=== PATIENT | male | born 1955 | race Caucasian/White ===

== ENCOUNTER 2017-06-19 22:30 | Inpatient (IN) | payer OTHER, MEDICARE ==
[2017-06-19 22:30] VITALS: BP 161/86; PULSE 66; RESP 16; TEMP 98; O2SAT 96
[~2017-06-19 22:30] MED LIST: BENZ0.5T PO; DONE10TA7 PO; FOLI400T PO; GABA800T PO; HALO100I IM; HALO10TA PO; LORA2TAB7 PO; OMEP20TA PO; TRAZ100T6 PO; VIAG25TA PO
[2017-06-20 04:20] VITALS: BP 145/81; PULSE 64; RESP 16; TEMP 97.7; O2SAT 98
[2017-06-20] MEDS ORDERED: ACETAMINOPHEN 325 MG TAB PO PRN (05:15)
[2017-06-20] MEDS ORDERED: SODIUM CHLORIDE 0.9% FLUSH 10 ML FLUSH IV FLUSH PRN (05:15)
[2017-06-20] MEDS ORDERED: NALOXONE HCL 0.4 MG/ML AMP IV PUSH PRN (05:15)
[2017-06-20] MEDS ORDERED: ONDANSETRON HCL 4 MG/2 ML VIAL IVP PRN (05:15)
[2017-06-20] MEDS ORDERED: LORazepam 2 MG/ML VIAL IV PUSH PRN ×3 (05:45)
[2017-06-20] MEDS ORDERED: LORazepam 1 MG TAB PO PRN (05:45)
[2017-06-20] MEDS ORDERED: LORazepam 2 MG TAB PO PRN (05:45)
[2017-06-20] MEDS ORDERED: FLUMAZENIL 0.5 MG/5 ML VIAL IV PUSH PRN (05:45)
--- NOTE | 2017-06-20 05:53 | HHI.HP ---
[facility]Staff Admission Diagnosis Diagnoses: Travel History International Travel<30 Days: No Contact w/Intl Traveler <30 Da: No Traveled to Known Affected Are: No History of Present Illness Per ED, the patient's states that he has a history of schizophrenia and was started on Cogentin 2 weeks ago. Per the , the patient has taken one dose of Cogentin and since that time he has "not been the same." His mental status is altered and the states that he has had poor by mouth intake and is very lethargic. On our interview, the patient is agitated and repeatedly screams "leave me alone". I was unable to obtain a history from the patient and as his was not bedside and I was unable to reconcile any medications. Review of Systems Unable to obtain Past Family Social History Past Medical History Unable to obtain Past Surgical History Unable to obtain Reported Medications Unable to obtain Allergies: Coded Allergies: No Known Allergies (Verified Allergy, Unknown, 06/19/17) Family History Unable to obtain Social History Unable to obtain Physical Exam Vital Signs Vital Signs Date Time Temp Pulse Resp B/P (MAP) Pulse Ox O2 Delivery O2 Flow Rate FiO2 06/19/17 22:30 98.0 66 16 161/86 (111) 96 Physical Exam GENERAL: White male lying in bed, agitated and refusing to follow commands SKIN: No rashes, ecchymoses or lesions. Cool and dry. HEAD: Atraumatic. Normocephalic. No temporal or scalp tenderness. EYES: Extraocular motions intact. No scleral icterus. No injection or drainage. ENT: Nose without bleeding. Airway patent. NECK: Trachea midline. No JVD or lymphadenopathy. Supple, nontender, no meningeal signs. CARDIOVASCULAR: Regular rate and rhythm without murmurs, gallops, or rubs. RESPIRATORY: Clear to auscultation. Breath sounds equal bilaterally. No wheezes , rales, or rhonchi. GASTROINTESTINAL: Abdomen soft, non-tender, nondistended. No hepato-splenomegaly , or palpable masses. No guarding. MUSCULOSKELETAL: Extremities without clubbing, cyanosis, or edema. NEUROLOGICAL: Awake and alert. Cranial nerves II through XII intact. Unable to assess mental status this patient uncooperative. Caprini VTE Risk Assessment Caprini VTE Risk Assessment: No/Low Risk (score <= 1) Caprini Risk Assessment Model Point Value = 1 Point Value = 2 Point Value = 3 Point Value = 5 Age 41-60 Minor surgery BMI > 25 kg/m2 Swollen legs Varicose veins or History of unexplained or recurrent spontaneous Oral contraceptives or hormone replacement Sepsis (< 1 month) Serious lung disease, including pneumonia (< 1 month) Abnormal pulmonary function Acute myocardial infarction Congestive heart failure (< 1 month) History of inflammatory bowel disease Medical patient at bed rest Age 61-74 Arthroscopic surgery Major open surgery (> 45 min) Laparoscopic surgery (> 45 min) Malignancy Confined to bed (> 72 hours) Immobilizing plaster cast Central venous access Age >= 75 History of VTE Family history of VTE Factor V Leiden Prothrombin [id number] Lupus anticoagulant Anticardiolipin antibodies Elevated serum homocysteine Heparin-induced thrombocytopenia Other congenital or acquired thrombophilia Stroke (< 1 month) Elective arthroplasty Hip, pelvis, or leg fracture Acute spinal cord injury (< 1 month) Prophylaxis Regimen Total Risk Factor Score Risk Level Prophylaxis Regimen 0-1 Low Early ambulation 2 Moderate Order ONE of the following: *Sequential Compression Device (SCD) *Heparin 5000 units SQ BID 3-4 Higher Order ONE of the following medications: *Heparin 5000 units SQ TID *Enoxaparin/Lovenox 40 mg SQ daily (WT < 150 kg, CrCl > 30 mL/min) *Enoxaparin/Lovenox 30 mg SQ daily (WT < 150 kg, CrCl > 10-29 mL/min) *Enoxaparin/Lovenox 30 mg SQ BID (WT < 150 kg, CrCl > 30 mL/min) AND/OR *Sequential Compression Device (SCD) 5 or more Highest Order ONE of the following medications: *Heparin 5000 units SQ TID (Preferred with Epidurals) *Enoxaparin/Lovenox 40 mg SQ daily (WT < 150 kg, CrCl > 30 mL/min) *Enoxaparin/Lovenox 30 mg SQ daily (WT < 150 kg, CrCl > 10-29 mL/min) *Enoxaparin/Lovenox 30 mg SQ BID (WT < 150 kg, CrCl > 30 mL/min) AND *Sequential Compression Device (SCD) Assessment and Plan Assessment and Plan 61-year-old male with a past medical history significant for schizophrenia presented to the emergency department with altered mental status to the increased lethargy since starting Cogentin 1. Altered mental status Likely medication induced Head CT without acute process Labs obtained in the emergency department unremarkable Unable to ascertain patient's baseline Psychiatry consulted, appreciate assistance with medication 2. Schizophrenia Patient currently on Cogentin Unclear what other medications the patient takes as he was unable to answer questions Appreciate psychiatry's assistance A benefit from inpatient psychiatric admission once cleared medically FEN Heart healthy diet Electrolytes within normal limits; continue to monitor and replete when necessary Heparin Physician Certification 2 Midnight Certification Type: Admission for Inpatient Services Order for Inpatient Services The services are ordered in accordance with Medicare regulations or non- Medicare payer requirements, as applicable. In the case of services not specified as inpatient-only, they are appropriately provided as inpatient services in accordance with the 2-midnight benchmark. Estimated LOS (days): 2 2 days is the estimated time the patient will need to remain in the hospital, assuming treatment plan goals are met and no additional complications. Post-Hospital Plan: Not yet determined Geni Sahni MD Jun 20, 2017 05:53
[2017-06-20] MEDS ORDERED: HEPARIN SODIUM - SQ 10,000 UNITS/ML VIAL SQ SCH (06:00)
[2017-06-20 07:00] VITALS: BP 138/74; PULSE 72; RESP 18; TEMP 98.5; O2SAT 97
[2017-06-20 08:00] VITALS: BP 138/74; PULSE 72; RESP 18; TEMP 98.5; O2SAT 97
[2017-06-20] MEDS ORDERED: FOLIC ACID 1 MG TAB PO SCH (09:00)
[2017-06-20] MEDS ORDERED: MULTIVITAMINS/MINERALS THERAPEUTIC TAB PO SCH (09:00)
[2017-06-20] MEDS ORDERED: SODIUM CHLORIDE 0.9% FLUSH 10 ML FLUSH IV FLUSH SCH (09:00)
[2017-06-20] MEDS ORDERED: THIAMINE HCL 100 MG TAB PO SCH (09:00)
[2017-06-20 12:00] VITALS: BP 148/90; PULSE 77; RESP 18; TEMP 98.2; O2SAT 99
[2017-06-20] MEDS: LORazepam 2 MG/ML VIAL IV PUSH PRN ×2 (13:34→16:52)
--- NOTE | 2017-06-20 14:48 | HHI.PR ---
Subjective Remarks Follow-up visit schizophrenia. Patient seen and examined today. Laying in bed. Patient appears to be having some tremors. Minimal verbalization. When asked if he is doing okay, patient states "I'm not okay." He is unable to describe any feeling he was on the phone and he hadn't been to phone. Spoke with his Bushra and told her that we would call her back once the patient gets evaluated and assessed. Patient became aggressive and held his fist attempting to hit me. I told patient not to attempt or even think about hitting me. He calmed down and let me examine him briefly. Objective Vitals Vital Signs Date Time Temp Pulse Resp B/P (MAP) Pulse Ox O2 Delivery O2 Flow Rate FiO2 06/20/17 12:00 98.2 77 18 148/90 (109) 99 06/20/17 08:00 98.5 72 18 138/74 (95) 97 06/20/17 04:20 97.7 64 16 145/81 (102) 98 06/19/17 22:30 98.0 66 16 161/86 (111) 96 I/O 06/19/17 06/19/17 06/19/17 06/20/17 06/20/17 06/20/17 07:00 15:00 23:00 07:00 15:00 23:00 Intake Total 0 ml Balance 0 ml Intake Oral 0 ml # Voids 2 # Bowel Movements 0 Objective Remarks GENERAL: This is a well-nourished, well-developed patient, in no apparent distress. SKIN: Warm and dry. HEENT: Normocephalic. Pupils equal round and reactive. Nose without bleeding. Airway patent. NECK: Trachea midline. No JVD. Supple. CARDIOVASCULAR: Regular rate and rhythm without murmurs, gallops, or rubs. RESPIRATORY: No wheezes, rales, or rhonchi. GASTROINTESTINAL: Abdomen soft, non-tender, nondistended. Bowel Sounds normoactive x4. MUSCULOSKELETAL: Extremities without clubbing, cyanosis, or edema. Tremulous. NEUROLOGICAL: Awake and alert. Moves all extremities. Minimal verbalization. A/P Problem List: (1) Altered mental status ICD Code: R41.82 - Altered mental status, unspecified Status: Acute Assessment and Plan 61-year-old male with a past medical history significant for schizophrenia presented to the emergency department with altered mental status to the increased lethargy since starting Cogentin Altered mental status - Likely medication induced - Head CT without acute process - Labs obtained in the emergency department unremarkable - Unable to ascertain patient's baseline - Psychiatry consulted, appreciate assistance with medication Schizophrenia - Patient currently on Cogentin - Unclear what other medications the patient takes as he was unable to answer questions - Appreciate psychiatry's assistance - Needs to be transfer inpatient psychiatric admission Elevated ammonia level - Lactulose daily - Recheck ammonia level in a few days Patient is cleared from medical standpoint. Labs reviewed CBC unremarkable, BMP showed a GFR at 86, T bili 1.4, AST 39 otherwise unremarkable. Elevated ammonia levels at 35, troponin less than 0.02. Attempted to call Bushra at [phone] - no answer and unavailable to leave message Discharge Planning Plan to DC to inpatient psychiatry unit today. Attending Statement The exam, history, and the medical decision-making described in the above note were completed with the assistance of the mid-level provider. I reviewed and agree with the findings presented. I attest that I had a [id number] encounter with the patient on the same day, and personally performed and documented my assessment and findings in the medical record. Patient was found in bed. When I asked patient questions he did not want to talk to me. When I asked us to carefully examine him he stated no. Gen NAD NEURO: Motor grossly intact. Otherwise he did not let me examine him. Labs and imaging reviewed. The [place] is more due to a psychiatric issue. Patient mentally stable to be discharged to psychiatry. Douglas Herrera Jun 20, 2017 14:48 Kandice Thibodeaux MD Jun 20, 2017 16:04
[2017-06-20] MEDS ORDERED: GNP100TA3 PO (15:55)
[2017-06-20] MEDS ORDERED: LORA-474 PO (15:55)
[2017-06-20] MEDS ORDERED: ATIV2INJ2 IV PUSH ×4 (15:55)
[2017-06-20] MEDS ORDERED: THERM PO (15:55)
[2017-06-20] MEDS ORDERED: LORA-475 PO (15:55)
[2017-06-20] MEDS ORDERED: LACT10SO PO (16:00)
--- NOTE | 2017-06-20 16:16 | PD.PSY.CON ---
Provisional Diagnosis Admission Date Jun 19, 2017 at 22:53 [place]. Schizophrenia History of Present Illness Service Psychiatry Consult Requested By Katelyn DICK Reason for Consult Schizophrenia Primary Care Physician Non-Staff HPI Patient is a 61-year-old man, , domiciled with , with past psychiatric history of schizophrenia, prior psychiatric hospitalizations, with [facility], who was brought into the ER initially for increased lethargic after starting Cogentin 2 weeks ago and was noted to have altered mental status with decreased eating and drinking which she was admitted to the medical floor for evaluation of the same and psychiatry was consulted for evaluation of schizophrenia. Patient was found lying in hospital bed noted to have decreased slow movements along with speech latency and thought blocking. Patient states that he has been feeling "not very good" she noted to be alert and oriented only to person. When asked if his speech is usually slow he states "this is normal" very patient denies any perceptual disturbances at this time. Patient noted to b becoming increasingly irritable stating "get the f*ck away from me" and refused to continue interview and turnaround slowly to face the other side. Patient throughout interview was noted to have rigidity, staring, inhibited movement, immobility at times (no spontaneous movement), which patient may be exhibiting signs of catatonia. Past Family Social History Coded Allergies: No Known Allergies (Verified Allergy, Unknown, 06/19/17) Reported Medications Haloperidol Decanoate Inj (Haloperidol Decanoate Inj) 100 Mg/Ml Inj, 100 MG IM Q21D for Schizophrenia, #1 VIAL 0 Refills 06/19/17 Haloperidol (Haloperidol) 10 Mg Tab, 10 MG PO DAILY, TAB 0 Refills 06/19/17 Trazodone (Trazodone) 100 Mg Tablet, 100 MG PO HS for Control Depression, #30 TAB 0 Refills 06/19/17 Sildenafil (Viagra) 25 Mg Tab, 25 MG PO DAILY Y for ERECTILE DYSFUNCTION, TAB 0 Refills 06/19/17 Omeprazole (Omeprazole) 20 Mg Tab, 20 MG PO DAILY, #30 TAB 0 Refills 06/19/17 Lorazepam (Lorazepam) 2 Mg Tab, 2 MG PO Q8H Y for ANXIETY, TAB 0 Refills 06/19/17 Gabapentin (Gabapentin) 800 Mg Tab, 800 MG PO HS, #90 TAB 0 Refills 06/19/17 Folic Acid (Folic Acid) 0.4 Mg Tab, 1 MG PO DAILY for Nutritional Supplement, TAB 0 Refills 06/19/17 Donepezil (Donepezil) 10 Mg Tab, 10 MG PO HS for Dementia, #30 TAB 0 Refills 06/19/17 Benztropine (Benztropine) 0.5 Mg Tab, 2 MG PO QID, #60 TAB 0 Refills 06/19/17 Current Medications Medications (Trade) Dose Ordered Sig/Ricardo Route Start Time Stop Time Status Last Admin (NS Flush) 2 ml UNSCH PRN IV FLUSH 06/20/17 05:15 (NS Flush) 2 ml BID IV FLUSH 06/20/17 09:00 (Tylenol) 650 mg Q4H PRN PO 06/20/17 05:15 (Zofran Inj) 4 mg Q6H PRN IVP 06/20/17 05:15 (Heparin Inj) 5,000 units Q8H SQ 06/20/17 06:00 (Narcan Inj) 0.4 mg UNSCH PRN IV PUSH 06/20/17 05:15 (Folate) 1 mg DAILY PO 06/20/17 09:00 06/25/17 08:59 (Vitamin B1) 100 mg DAILY PO 06/20/17 09:00 (Theragran M Tab) 1 tab DAILY PO 06/20/17 09:00 06/25/17 08:59 (Romazicon Inj) 0.2 mg Q1M PRN IV PUSH 06/20/17 05:45 (Ativan) 1 mg Q4H PRN PO 06/20/17 05:45 (Ativan Inj) 1 mg Q4H PRN IV PUSH 06/20/17 05:45 (Ativan) 2 mg Q2H PRN PO 06/20/17 05:45 (Ativan Inj) 2 mg Q2H PRN IV PUSH 06/20/17 05:45 06/20/17 13:34 (Ativan Inj) 2 mg Q1H PRN IV PUSH 06/20/17 05:45 (Ativan Inj) 2 mg Q15M PRN IV PUSH 06/20/17 05:45 Physical Exam Vital Signs Vital Signs Date Time Temp Pulse Resp B/P (MAP) Pulse Ox O2 Delivery O2 Flow Rate FiO2 06/20/17 12:00 98.2 77 18 148/90 (109) 99 I/O 06/20/17 06/20/17 06/21/17 08:00 16:00 00:00 Intake Total 0 ml Balance 0 ml Mental Status Examination Appearance: Appropriate Consciousness: Alert Orientation: Person Speech: Hesitant, Slow Language: Other (poverty of speech) Fund of Knowledge: Inadequate Attention and Concentration: Inadequate Mood: Irritable Affect: Irritable Thought Process & Associations: Other (concrete) Thought Content: Thought blocking Hallucination Type: None Delusion Type: None Suicidal Ideation: No Suicidal Plan: No Suicidal Intention: No Homicidal Ideation: No Homicidal Plan: No Homicidal Intention: No Insight: Poor Judgment: Poor Assessment & Plan Problem List: (1) Schizophrenia ICD Codes: F20.9 - Schizophrenia, unspecified Assessment & Plan Patient is a 61-year-old man who carries a diagnosis of schizophrenia who was recently admitted to the medical unit for also mentions status and decrease in eating and drinking after having been started on Cogentin 2 weeks ago. Patient upon interview was guarded and uncooperative but also noted to have catatonic-like features and or psychosis. Would recommend trial of benzodiazepine to see if patient responds, Ativan 1 mg by mouth every 6 hours. Patient at this time will be put under [place] act for transfer to the inpatient psychiatry unit once medically cleared due to concerns that patient is unable to care for self under this current clinical presentation. If patient medically clear please transfer patient to medical/psychiatry unit for further evaluation and management. If patient continues to remain a medical floor, psychiatry consultation team will continue to follow. Consult appreciated. Mj Echevarria MD Jun 20, 2017 16:16
== END 2017-06-20 17:08 | DRG 948 ==
LOC: NEDDLT 22:30 → N05B 22:53
PROVIDERS: ADMIT Family Medicine; ATTEND Family Medicine
DX: R41.82 Altered mental status, unspecified (principal); F20.9 Schizophrenia, unspecified; T50.905A Adverse effect of unspecified drugs, medicaments and biological substances, initial encounter
CPT/HCPCS: 70450; 71010; 80053; 80307; 81001; 82140; 82948; 84484; 85025; 93005; J2060

== ENCOUNTER 2017-06-20 17:15 | Inpatient (IN) | payer OTHER, MEDICARE ==
[~2017-06-20] VITALS: Ht 188 cm; Wt 97.8 kg
[~2017-06-20 17:15] MED LIST changes: +ATIV2INJ2 IV PUSH; +LACT10SO PO; +LORA-474 PO; +LORA-475 PO; -OMEP20TA PO; +OMEP20TA93 PO; +THERM PO; +THIA100 PO; +TRAZ100T10 PO; -TRAZ100T6 PO
[2017-06-20] MEDS ORDERED: ACETAMINOPHEN 325 MG TAB PO PRN (18:00)
[2017-06-20] MEDS: LACTULOSE SYRUP 20 GM/30 ML CUP PO SCH (18:00)
[2017-06-20] MEDS ORDERED: ALUMINUM/MAGNESIUM/SIMETH 30 ML CUP PO PRN (18:00)
[2017-06-20] MEDS ORDERED: LORazepam 1 MG TAB PO PRN (18:00)
[2017-06-20] MEDS: LORazepam 1 MG TAB PO SCH ×2 (18:00→20:46)
[2017-06-20] MEDS ORDERED: MAGNESIUM HYDROXIDE SUSP 30 ML CUP PO PRN (18:00)
[2017-06-20] MEDS ORDERED: LORazepam 2 MG/ML VIAL IM PRN (18:00)
[2017-06-20 20:24] VITALS: BP 131/80; PULSE 80; RESP 18; TEMP 98; O2SAT 96
[2017-06-20] MEDS ORDERED: DONEPEZIL HCL 5 MG TAB PO SCH (21:00)
[2017-06-21] MEDS: LORazepam 1 MG TAB PO SCH (05:54)
[2017-06-21 06:17] VITALS: BP 150/78; PULSE 72; RESP 18; TEMP 98.1; O2SAT 98
[2017-06-21] MEDS: THIAMINE HCL 100 MG TAB PO SCH (08:55)
[2017-06-21] MEDS: MULTIVITAMINS/MINERALS THERAPEUTIC TAB PO SCH (08:55)
[2017-06-21] MEDS: FOLIC ACID 1 MG TAB PO SCH (08:55)
[2017-06-21] MEDS: PANTOPRAZOLE SOD 20 MG DELAYED RELEASE TAB PO SCH (08:55)
--- NOTE | 2017-06-21 10:15 | HHI.HP ---
Provisional Diagnosis Admission Date Jun 20, 2017 at 17:15 [facility] I. 1. Schizophrenia, undifferentiated type Rule-out decompensated psychosis +/- catatonia Rule-out delirium due to GMC 2. Rule-out comorbid neurocognitive disorder [facility] II. Deferred Certification of Person's Competence To Provide Express and Informed Consent I have personally examined Richie Scherer , a person being served at [facility] on, Jun 21, 2017 10:15. Express and informed consent means consent voluntarily given in writing, by a competent person, after sufficient explanation and disclosure of the subject matter involved to enable the person to make a knowing and willful decision without any element of force, fraud, deceit, duress, or other form of constraint or coercion. This person is 18 years of age or older, is not now known to be incompetent to consent to treatment with a guardian advocate, and does not have a health care surrogate or proxy currently making medical treatment decisions. I have found this person to be one of the following: [] Competent to provide express and informed consent, as defined above, for voluntary admission to this facility and is competent to provide express and informed consent for treatment. He/she has the consistent capacity to make well reasoned, willful, and knowing decisions concerning his or her medical or mental health treatment. The person fully and consistently understands the purpose of the admission for examination/placement and is fully capable of personally exercising all rights assured [place] [x] Incompetent to provide express and informed consent to voluntary admission, and this is incompetent to provide express and informed consent to treatment. The person must be transferred to involuntary status and a petition for a guardian advocate filed with the Circuit Court. [] Refusing to provide express and informed consent to voluntary admission but is competent to provide express and informed consent for treatment. The person must be discharged or transferred to involuntary status. Form shall be completed within 24 hours of a person's arrival at the receiving facility and filed in the clinical record of each person: 1. Admitted on a voluntary basis 2. Permitted to provide express and informed consent to his/her own treatment 3. Allowed to transfer from involuntary to voluntary status 4. Prior to permitting a person to consent to his or her own treatment after having been previously found incompetent to consent to treatment. History of Present Illness Capacity: Lacks Capacity Psych Chief Complaint: Altered mental status HPI Mr. Scherer is a 61 year-old male with a history of schizophrenia and possible comorbid major neurocognitive disorder who presents in transfer from the medical floor under a Pickett act. The patient was admitted initially with altered mental status. He became combative on the medical floor, and psychiatry was consulted. Dr. Echevarria evaluated the patient and suspected some degree of catatonia. He placed the patient under the Pickett Act and the patient was transferred to the inpatient psychiatric unit. Reviewing the electronic medical record, I see no prior psychiatric admissions or consultations within our system. Patient seen and examined with counselor and nurse. On my examination today, the patient presents as somewhat irritable and negativistic. He is neither stuporous nor mute. I do note a resting tremor and possibly some posturing but no stereotypies. He refuses physical exam. He tells me, "my name is Richie Scherer and I'm gonna today." He is unable to explain why he believes this to be the case. He denies SI or HI, although it is unclear whether he is reliable to contract for safety. Affect is flat. He does not describe any AVH. No rob delusional material elicited, although patient does seem a little guarded. He does endorse a history of schizophrenia. Patient is unable to tolerate extended interview and says "leave me alone!" No physical complaints. He is unable to provide any past psychiatric, family, chemical dependency or social history because of uncooperativeness and clinical condition. Obtained further collateral from patient's Bushra over the phone at number listed in EMR. She notes that the patient has a history of schizophrenia diagnosed in 1995 and dementia diagnosed about 5 months ago. He follows at [facility] in [place]. He takes several psychotropics including Haldol Dec 100mg IM , which he reported received 1 week ago. He was hospitalized in [place] 2 months ago for symptoms similar to those that led to his presentation here although they were reportedly less severe. He has no history of suicide attempts per . There is no family history of mental illness. He drinks only 2 beers a day per and uses no other substances. He lives with his . notes that prior to a week ago he was "up and coherent and laughing. He is usually easy going." She notes that prior to resumption of benztropine a week ago, which had been stopped secondary to running out of this medication about a month ago, patient "couldn't think straight, he was paranoid and he lost it." There have been no other recent medication changes per , although she does note "I don't think he's taking his medications right." She says that she lays out a pill box for him and that he may have been interchanging the morning and afternoon doses of medications. Review of Systems ROS Limitations: Uncooperative, Poor Historian Other Limited ROS because of above factors. Past Psych History Psychological trauma history No reported trauma history to me. Violence risk - others (6 mos) Indeterminate. No HI but patient was reportedly aggressive on medical floor. Violence risk - self (6 mos) Indeterminate. Concern for self-care deficit. Substance Abuse History Drugs/Alcohol past 12 months See above Past Family Social History Coded Allergies: No Known Allergies (Verified Allergy, Unknown, 06/19/17) Past Medical History notes a history of back problems. See electronic medical record. Active Scripts Lactulose Liq (Lactulose Liq) 10 Gm/15 Ml Soln, 30 ML PO DAILY for Elevated Ammonia for 7 Days, #210 ML 0 Refills Prov:Douglas HerreraP 06/20/17 Multiple Vitamins W/ Minerals (Thera M Plus) 1 Tab, 1 TAB PO DAILY for Nutritional Supplement, #30 TAB Prov:Douglas HerreraP 06/20/17 Thiamine HCl (Gnp Vitamin B-1) 100 Mg Tab, 100 MG PO DAILY for Nutritional Supplement, #30 TAB Prov:Douglas HerreraP 06/20/17 Lorazepam Inj (Ativan Inj) 2 Mg/Ml Inj, 2 MG IV PUSH Q15M Y for CIWA > 20, #10 INJECTION Prov:Douglas HerreraP 06/20/17 Lorazepam Inj (Ativan Inj) 2 Mg/Ml Inj, 2 MG IV PUSH Q1H Y for CIWA 15-20, #10 INJECTION Prov:Douglas HerreraP 06/20/17 Lorazepam Inj (Ativan Inj) 2 Mg/Ml Inj, 2 MG IV PUSH Q2H Y for CIWA 11-14, #10 INJECTION Prov:Douglas HerreraP 06/20/17 Lorazepam Inj (Ativan Inj) 2 Mg/Ml Inj, 1 MG IV PUSH Q4H Y for CIWA 8 - 10, #10 INJECTION Prov:Nudalo-Diego,Iszenn COLLECTION OFFICER 06/20/17 Lorazepam (Ativan) 2 Mg Tab, 2 MG PO Q2H Y for CIWA 11-14, #10 TAB Prov:Nudalo-Briganti,Iszenn COLLECTION OFFICER 06/20/17 Lorazepam (Ativan) 1 Mg Tab, 1 MG PO Q4H Y for CIWA 8 - 10, #10 TAB Prov:Nudalo-Briganti,Iszenn COLLECTION OFFICER 06/20/17 Reported Medications Haloperidol Decanoate Inj (Haloperidol Decanoate Inj) 100 Mg/Ml Inj, 100 MG IM Q21D for Schizophrenia, #1 VIAL 0 Refills 06/19/17 Haloperidol (Haloperidol) 10 Mg Tab, 10 MG PO DAILY, TAB 0 Refills 06/19/17 Trazodone (Trazodone) 100 Mg Tablet, 100 MG PO HS for Control Depression, #30 TAB 0 Refills 06/19/17 Sildenafil (Viagra) 25 Mg Tab, 25 MG PO DAILY Y for ERECTILE DYSFUNCTION, TAB 0 Refills 06/19/17 Omeprazole (Omeprazole) 20 Mg Tab, 20 MG PO DAILY, #30 TAB 0 Refills 06/19/17 Lorazepam (Lorazepam) 2 Mg Tab, 2 MG PO Q8H Y for ANXIETY, TAB 0 Refills 06/19/17 Gabapentin (Gabapentin) 800 Mg Tab, 800 MG PO HS, #90 TAB 0 Refills 06/19/17 Folic Acid (Folic Acid) 0.4 Mg Tab, 1 MG PO DAILY for Nutritional Supplement, TAB 0 Refills 06/19/17 Donepezil (Donepezil) 10 Mg Tab, 10 MG PO HS for Dementia, #30 TAB 0 Refills 06/19/17 Benztropine (Benztropine) 0.5 Mg Tab, 2 MG PO QID, #60 TAB 0 Refills 06/19/17 Current Medications Medications (Trade) Dose Ordered Sig/Ricardo Route Start Time Stop Time Status Last Admin (Ativan) 1 mg Q6H PRN PO 06/20/17 18:00 (Ativan Inj) 1 mg Q6H PRN IM 06/20/17 18:00 06/20/17 18:02 (Tylenol) 650 mg Q4H PRN PO 06/20/17 18:00 (Milk Of Magnesia Liq) 30 ml DAILY PRN PO 06/20/17 18:00 (Mag-Al Plus Susp Liq) 30 ml Q6H PRN PO 06/20/17 18:00 (Ativan) 1 mg Q6HR PO 06/20/17 18:00 06/21/17 05:54 (Lactulose Liq) 30 ml Q24H PO 06/20/17 18:00 06/26/17 18:01 (Theragran M Tab) 1 tab DAILY PO 06/21/17 09:00 (Vitamin B1) 100 mg DAILY PO 06/21/17 09:00 (Aricept) 10 mg HS PO 06/20/17 21:00 06/20/17 20:46 (Folate) 1 mg DAILY PO 06/21/17 09:00 (Protonix) 20 mg DAILY PO 06/21/17 09:00 Family Psych History See above Social History See above Patient's Strengths (min. 2) In a monitored setting. Verbally fluent. Physical Exam Patient refuses physical exam. He appears to be in no acute physical distress. Besides the resting tremor and posturing, I appreciate no other abnormal motor movements. No signs of GABAergic or other withdrawal noted (besides, possibly, the tremor). Labs and vitals reviewed: Vital Signs Vital Signs Date Time Temp Pulse Resp B/P (MAP) Pulse Ox O2 Delivery O2 Flow Rate FiO2 06/21/17 06:17 98.1 72 18 150/78 (102) 98 Lab Results Item Value Date Time White Blood Count 9.1 TH/MM3 06/19/17 1604 Hemoglobin 17.3 GM/DL H 06/19/17 1604 Platelet Count 124 TH/MM3 L 06/19/17 1604 Sodium Level 137 MEQ/L 06/19/17 1604 Potassium Level 3.8 MEQ/L 06/19/17 1604 Chloride Level 106 MEQ/L 06/19/17 1604 Carbon Dioxide Level 23.0 MEQ/L 06/19/17 1604 Blood Urea Nitrogen 12 MG/DL 06/19/17 1604 Creatinine 0.90 MG/DL 06/19/17 1604 Aspartate Amino Transf (AST/SGOT) 39 U/L H 06/19/17 1604 Alanine Aminotransferase (ALT/SGPT) 39 U/L 06/19/17 1604 Alkaline Phosphatase 80 U/L 06/19/17 1604 Urine Opiates Screen NEG 06/19/17 1843 Urine Barbiturates Screen NEG 06/19/17 1843 Urine Amphetamines Screen NEG 06/19/17 1843 Urine Benzodiazepines Screen NEG 06/19/17 1843 Urine Cocaine Screen NEG 06/19/17 1843 Urine Cannabinoids Screen NEG 06/19/17 1843 Ethyl Alcohol Level LESS THAN 3 MG/DL 06/19/17 1604 Item Value Date Time Ammonia 35 MCMOL/L H 06/19/17 1604 Thrombocytopenia noted. Hyperammonemia noted. Urinalysis reviewed. Head CT and chest x-ray both obtained 06/19 were read as no acute process. Mental Status Examination Appearance: Disheveled Consciousness: Alert Orientation: Person Motor Activity: Normal gait Speech: Slow Language: Other (limited output) Fund of Knowledge: Inadequate Attention and Concentration: Inadequate Memory: Impaired (difficult to assess, possibly some degree of impairment) Mood: Other (dysphoric) Affect: Flat Thought Process & Associations: Other (slowed) Thought Content: Bizarre thinking Hallucination Type: None Delusion Type: Other (possibly some degree of guardedness) Suicidal Ideation: No Homicidal Ideation: No Insight: Poor Judgment: Poor Assessment & Plan Problem List: (1) Schizophrenia ICD Codes: F20.9 - Schizophrenia, unspecified Assessment & Plan 61-year-old male with psychiatric history as detailed above who presents in transfer from medical floor under Melbeta act. Dr. Echevarria had suspected some degree of catatonia, although he has a paucity of catatonic symptoms at present, and these could perhaps be better explained, e.g. by delirium due to GMC. Catatonia does remain in the differential, but is presently somewhat lower. There is no evidence of autonomic instability to suggest a malignant catatonia. Initial laboratory workup was unrevealing besides some mild hyperammonemia and thrombocytopenia, but workup for reversible causes of altered mental status has not been undertaken. I will plan to admit the patient to the inpatient unit for further workup of AMS, safety, and psychiatric stabilization if necessary. Admit inpatient. Involuntary status. I have completed first opinion. Consult for second opinion. Request healthcare surrogate and guardian advocate. Patient's medication list is not presently available for my review. I have instructed the nursing staff to obtain a complete and up-to-date list of [facility] and to notify me within this has been done so I may appropriately reconcile his medications. Hold Aricept for now. To workup AMS obtain: EEG, MRI brain w/ and w/o contrast, ESR, EGOVANY, TSH, B12, thiamine, folate, RPR, HIV. Recheck ammonia as patient has been on lactulose. Check EKG for QTc given that patient will likely require an antipsychotic. Consult to neurology for possible neurological causes of current presentation; he does have a resting tremor which may be related to chronic antipsychotic use or may be related to some underlying neurological cause. Dr. Echevarria has consulted the hospitalist. Product Analyst consult as PO intake is reportedly poor; patient did not eat breakfast this morning. PT eval. Falls precautions. CIWA with Ativan as thinks home regimen may have included benzos. Seizure precaution. Violent/assaultive prec. Vitals every shift. Counselor to see. Disposition planning. Estimated length of stay : 7-9 days. Discharge Planning Pending further workup Request HC Surrog/Guard Advoc?: Yes Problem Qualifiers (1) Schizophrenia: Qualified Codes: F20.3 - Undifferentiated schizophrenia Marco Alcantara MD Jun 21, 2017 10:15
[2017-06-21] MEDS ORDERED: FLUMAZENIL 0.5 MG/5 ML VIAL IV PUSH PRN (12:00)
[2017-06-21] MEDS ORDERED: LORazepam 2 MG TAB PO PRN (12:00)
[2017-06-21] MEDS ORDERED: LORazepam 2 MG/ML VIAL IV PUSH PRN ×4 (12:00)
[2017-06-21] MEDS: LORazepam 1 MG TAB PO PRN ×2 (12:49→17:43)
[2017-06-21] MEDS: LACTULOSE SYRUP 20 GM/30 ML CUP PO SCH (17:43)
--- NOTE | 2017-06-21 18:35 | PD.CONS ---
[facility] By Dr Chaudhary Reason for Consult Medical Management Primary Care Physician Non-Staff Diagnoses: History of Present Illness This is a 61-year-old male with past medical history significant for schizophrenia and dementia diagnosed about 5 months ago. As per the medical records the patient was transferred to the psychiatric floor under Pickett act. The patient was admitted to the medical floor initially without the mental status. As per the documentation the patient became combative on the medical floor and psychiatry was consulted. Dr. Echevarria will related to patient suspected some degree of catatonia and place the patient on the Pickett act after which the patient was evaluated and then discharged to the psychiatric unit. The patient at this moment is unable to provide history, had become very agitated earlier today as per nurse report and was combative. As per medical records the patient had been hospitalized in [place] 2 months ago for symptoms similar to those that brought him to this hospital. As per medical records the patient was recently started on Cogentin 2 weeks ago and became altered after resuming it. On presentation to the hospital the patient was very combative, screaming. The patient does not want to cooperate with the review of systems however there are no reports of diarrhea, nausea, vomiting, the patient has not complained of headaches. Review of Systems As per history of present illness, other systems reviewed by me and negative Past Family Social History Allergies: Coded Allergies: No Known Allergies (Verified Allergy, Unknown, 06/19/17) Past Medical History Unable to obtain Past Surgical History Unable to obtain Reported Medications Reported Meds & Active Scripts Active Lactulose Liq (Lactulose) 10 Gm/15 Ml Soln 30 Ml PO DAILY 7 Days Thera M Plus (Multivitamins/Minerals Therapeutic) 1 Tab 1 Tab PO DAILY Gnp Vitamin B-1 (Thiamine HCl) 100 Mg Tab 100 Mg PO DAILY Ativan Inj (Lorazepam) 2 Mg/Ml Inj 2 Mg IV PUSH Q15M PRN Ativan Inj (Lorazepam) 2 Mg/Ml Inj 2 Mg IV PUSH Q1H PRN Ativan Inj (Lorazepam) 2 Mg/Ml Inj 2 Mg IV PUSH Q2H PRN Ativan Inj (Lorazepam) 2 Mg/Ml Inj 1 Mg IV PUSH Q4H PRN Ativan (Lorazepam) 2 Mg Tab 2 Mg PO Q2H PRN Ativan (Lorazepam) 1 Mg Tab 1 Mg PO Q4H PRN Reported Haloperidol Decanoate Inj (Haloperidol Decanoate) 100 Mg/Ml Inj 100 Mg IM Q21D Haloperidol 10 Mg Tab 10 Mg PO DAILY Trazodone (Trazodone HCl) 100 Mg Tablet 100 Mg PO HS Viagra (Sildenafil Citrate) 25 Mg Tab 25 Mg PO DAILY PRN Omeprazole 20 Mg Tab 20 Mg PO DAILY Lorazepam 2 Mg Tab 2 Mg PO Q8H PRN Gabapentin 800 Mg Tab 800 Mg PO HS Folic Acid 0.4 Mg Tab 1 Mg PO DAILY Donepezil 10 Mg Tab 10 Mg PO HS Benztropine (Benztropine Mesylate) 0.5 Mg Tab 2 Mg PO QID Active Ordered Medications Current Medications Medications (Trade) Dose Ordered Sig/Ricardo Route Start Time Stop Time Status Last Admin (Tylenol) 650 mg Q4H PRN PO 06/20/17 18:00 (Milk Of Magnesia Liq) 30 ml DAILY PRN PO 06/20/17 18:00 (Mag-Al Plus Susp Liq) 30 ml Q6H PRN PO 06/20/17 18:00 (Lactulose Liq) 30 ml Q24H PO 06/20/17 18:00 06/26/17 18:01 06/21/17 17:43 (Theragran M Tab) 1 tab DAILY PO 06/21/17 09:00 (Vitamin B1) 100 mg DAILY PO 06/21/17 09:00 (Folate) 1 mg DAILY PO 06/21/17 09:00 (Protonix) 20 mg DAILY PO 06/21/17 09:00 (Romazicon Inj) 0.2 mg Q1M PRN IV PUSH 06/21/17 12:00 (Ativan) 1 mg Q4H PRN PO 06/21/17 12:00 06/21/17 17:43 (Ativan Inj) 1 mg Q4H PRN IV PUSH 06/21/17 12:00 (Ativan) 2 mg Q2H PRN PO 06/21/17 12:00 (Ativan Inj) 2 mg Q2H PRN IV PUSH 06/21/17 12:00 (Ativan Inj) 2 mg Q1H PRN IV PUSH 06/21/17 12:00 (Ativan Inj) 2 mg Q15M PRN IV PUSH 06/21/17 12:00 Family History Unable to obtain Social History Unable to obtain Physical Exam Vital Signs Vital Signs Date Time Temp Pulse Resp B/P (MAP) Pulse Ox O2 Delivery O2 Flow Rate FiO2 06/21/17 06:17 98.1 72 18 150/78 (102) 98 06/20/17 20:24 98.0 80 18 131/80 (97) 96 Physical Exam Patient refused physical exam. Laboratory Laboratory Tests Test 06/21/17 17:53 Ammonia 32 Assessment and Plan Problem List: (1) Altered mental status ICD Code: R41.82 - Altered mental status, unspecified Status: Acute (2) Schizophrenia ICD Code: F20.9 - Schizophrenia, unspecified Assessment and Plan Agree with workup ordered by psychiatry. Follow-up MRI of the brain, EEG, vitamin B12, TSH, vitamin B1, HIV, RPR, sedimentation rate. Katie management of psychiatric symptoms as per psychiatry recommendations. The patient currently on Ativan. Repeat ammonia level within normal range, no electrographic abnormalities, urinalysis obtained on 06/19 negative for infection, chest x-ray negative, head CT negative. Neurology has been consulted as per psychiatry. Follow recommendations. Problem Qualifiers (1) Schizophrenia: Qualified Codes: F20.3 - Undifferentiated schizophrenia Clint Fernandez MD Jun 21, 2017 18:35
--- NOTE | 2017-06-21 20:43 | MB ---
cc: HEIDE ANDRADE M.D. DATE OF CONSULTATION 06/21/2017 HISTORY He is a 61-year-old seen in neurological consultation. The patient was admitted today. Apparently initially in the medical floor then transferred to the psychiatric unit due to combativeness and somewhat catatonic state. There is a history of schizophrenia and some cognitive decline in the past few months. The patient is unable to provide any history. Family was not available for additional information. I spoke to the nursing staff and reviewed the chart notes. He was apparently in [place] for similar symptoms a couple of months ago. MEDICATIONS Current medications are noted. PHYSICAL EXAMINATION On the exam, very limited participation noted. The patient was laying down and the nursing staff came along with me. The patient was obviously irritable, minimally participate, uncooperative. Eventually as I asked him to turn around, he did so and as I started examining him, immediately after touched him he brought to my attention that I should not touch him because I was a male. Once more I informed him that I was a doctor trying to help him and he then spoke foul language using the F word and he on more than one instance mentioned that this place was crazy. Evidently I was concerned about him becoming violent and slowly walked away along with the nursing staff. He seemed to be in no acute medical distress and I thought that his condition was mostly psychiatric. I could not the check reflexes, could not ambulate him but I did not see any obvious focal motor deficits. There was minimal tremoring noted and some anxiety, nervousness and the irritability as discussed. ASSESSMENT Acute delirium / psychotic state. Apparent chronic history of psychiatric syndrome, schizophrenia. Apparent history of cognitive decline in the past few months. MEDICATIONS Current medications include: 1. Romazicon given IV. 2. Lorazepam. 3. Thiamine. 4. Folic acid. 5. Donepezil. LABORATORY DATA Sed rate 1. B12 489. TSH 1.85. Ammonia 32. RPR and HIV pending. IMAGING CT brain on 06/19 was normal. EMR also indicates he was given Cogentin two weeks ago and may have taken the medication once and "has not been the same." Today he has refused an EEG. I will follow the neurological course. Thank you for asking us to assist in his care. Heide Andrade MD [facility]/KK /7:56 PM /8:37 PM
[2017-06-22 05:58] VITALS: BP 153/81; PULSE 104; RESP 17; TEMP 98.3; O2SAT 99
[2017-06-22] MEDS: PANTOPRAZOLE SOD 20 MG DELAYED RELEASE TAB PO SCH (08:45)
[2017-06-22] MEDS: FOLIC ACID 1 MG TAB PO SCH (08:45)
[2017-06-22] MEDS: THIAMINE HCL 100 MG TAB PO SCH (08:45)
[2017-06-22] MEDS: MULTIVITAMINS/MINERALS THERAPEUTIC TAB PO SCH (08:45)
--- NOTE | 2017-06-22 10:57 | PD.PSY.CON ---
Provisional Diagnosis Admission Date Jun 20, 2017 at 17:15 [place] I. 1. Schizophrenia, undifferentiated type Rule-out decompensated psychosis +/- catatonia Rule-out delirium due to GMC 2. Rule-out comorbid neurocognitive disorder Addison II. Deferred History of Present Illness Service Psychiatry Consult Requested By Dr. Alcantara Reason for Consult Second opinion Primary Care Physician Non-Staff HPI Mr. Scherer is a 61 year-old male with a history of schizophrenia and possible comorbid major neurocognitive disorder who presents in transfer from the medical floor under a Pickett act. The patient was admitted initially with altered mental status. He became combative on the medical floor, and psychiatry was consulted. Dr. Echevarria evaluated the patient and suspected some degree of catatonia. He placed the patient under the Pickett Act and the patient was transferred to the inpatient psychiatric unit. Reviewing the electronic medical record, I see no prior psychiatric admissions or consultations within our system. Patient seen and examined with counselor and nurse. On my examination today, the patient presents as somewhat irritable and negativistic. He is neither stuporous nor mute. I do note a resting tremor and possibly some posturing but no stereotypies. He refuses physical exam. He tells me, "my name is Richie Scherer and I'm gonna today." He is unable to explain why he believes this to be the case. He denies SI or HI, although it is unclear whether he is reliable to contract for safety. Affect is flat. He does not describe any AVH. No rob delusional material elicited, although patient does seem a little guarded. He does endorse a history of schizophrenia. Patient is unable to tolerate extended interview and says "leave me alone!" No physical complaints. He is unable to provide any past psychiatric, family, chemical dependency or social history because of uncooperativeness and clinical condition. Obtained further collateral from patient's Bushra over the phone at number listed in EMR. She notes that the patient has a history of schizophrenia diagnosed in 1995 and dementia diagnosed about 5 months ago. He follows at the [facility] in [place]. He takes several psychotropics including Haldol Dec 100mg IM , which he reported received 1 week ago. He was hospitalized in [place] 2 months ago for symptoms similar to those that led to his presentation here although they were reportedly less severe. He has no history of suicide attempts per . There is no family history of mental illness. He drinks only 2 beers a day per and uses no other substances. He lives with his . notes that prior to a week ago he was "up and coherent and laughing. He is usually easy going." She notes that prior to resumption of benztropine a week ago, which had been stopped secondary to running out of this medication about a month ago, patient "couldn't think straight, he was paranoid and he lost it." There have been no other recent medication changes per , although she does note "I don't think he's taking his medications right." She says that she lays out a pill box for him and that he may have been interchanging the morning and afternoon doses of medications. 06/22/17 - Second opinion 61-year-old man, , domiciled with , with past psychiatric history of schizophrenia, prior psychiatric hospitalizations, with outpatient psychiatrist at a [facility], known to me from initial consult while patient on the medical floor which am evaluating for second opinion on this occasion. Patient found lying on hospital bed, noted to have some slow movements as well as speech latency but able to respond concretely to questioning without spontaneous elaboration. Patient was oriented to person only and noted to not to respond to open-ended questions and provide short answers only. Patient later noted to be asking staff to help him tighten his pants since he was walking around appearing unable to do so himself. TBC.... Past Family Social History Coded Allergies: No Known Allergies (Verified Allergy, Unknown, 06/19/17) Active Scripts Lactulose Liq (Lactulose Liq) 10 Gm/15 Ml Soln, 30 ML PO DAILY for Elevated Ammonia for 7 Days, #210 ML 0 Refills Prov:Douglas Herrera 06/20/17 Multiple Vitamins W/ Minerals (Thera M Plus) 1 Tab, 1 TAB PO DAILY for Nutritional Supplement, #30 TAB Prov:Douglas Herrera 06/20/17 Thiamine HCl (Gnp Vitamin B-1) 100 Mg Tab, 100 MG PO DAILY for Nutritional Supplement, #30 TAB Prov:Douglas Herrera 06/20/17 Lorazepam Inj (Ativan Inj) 2 Mg/Ml Inj, 2 MG IV PUSH Q15M Y for CIWA > 20, #10 INJECTION Prov:Nudalo-Briganti,Iszenn COATER 06/20/17 Lorazepam Inj (Ativan Inj) 2 Mg/Ml Inj, 2 MG IV PUSH Q1H Y for CIWA 15-20, #10 INJECTION Prov:Nudalo-Briganti,Iszenn COATER 06/20/17 Lorazepam Inj (Ativan Inj) 2 Mg/Ml Inj, 2 MG IV PUSH Q2H Y for CIWA 11-14, #10 INJECTION Prov:Nudalo-Briganti,Iszenn COATER 06/20/17 Lorazepam Inj (Ativan Inj) 2 Mg/Ml Inj, 1 MG IV PUSH Q4H Y for CIWA 8 - 10, #10 INJECTION Prov:Nudalo-Briganti,Iszenn COATER 06/20/17 Lorazepam (Ativan) 2 Mg Tab, 2 MG PO Q2H Y for CIWA 11-14, #10 TAB Prov:Nudalo-Briganchantelle,Iszenn COATER 06/20/17 Lorazepam (Ativan) 1 Mg Tab, 1 MG PO Q4H Y for CIWA 8 - 10, #10 TAB Prov:Nudalo-Briganti,Iszenn COATER 06/20/17 Reported Medications Haloperidol Decanoate Inj (Haloperidol Decanoate Inj) 100 Mg/Ml Inj, 100 MG IM Q21D for Schizophrenia, #1 VIAL 0 Refills 06/19/17 Haloperidol (Haloperidol) 10 Mg Tab, 10 MG PO DAILY, TAB 0 Refills 06/19/17 Trazodone (Trazodone) 100 Mg Tablet, 100 MG PO HS for Control Depression, #30 TAB 0 Refills 06/19/17 Sildenafil (Viagra) 25 Mg Tab, 25 MG PO DAILY Y for ERECTILE DYSFUNCTION, TAB 0 Refills 06/19/17 Omeprazole (Omeprazole) 20 Mg Tab, 20 MG PO DAILY, #30 TAB 0 Refills 06/19/17 Lorazepam (Lorazepam) 2 Mg Tab, 2 MG PO Q8H Y for ANXIETY, TAB 0 Refills 06/19/17 Gabapentin (Gabapentin) 800 Mg Tab, 800 MG PO HS, #90 TAB 0 Refills 06/19/17 Folic Acid (Folic Acid) 0.4 Mg Tab, 1 MG PO DAILY for Nutritional Supplement, TAB 0 Refills 06/19/17 Donepezil (Donepezil) 10 Mg Tab, 10 MG PO HS for Dementia, #30 TAB 0 Refills 06/19/17 Benztropine (Benztropine) 0.5 Mg Tab, 2 MG PO QID, #60 TAB 0 Refills 06/19/17 Current Medications Medications (Trade) Dose Ordered Sig/Ricardo Route Start Time Stop Time Status Last Admin (Tylenol) 650 mg Q4H PRN PO 06/20/17 18:00 (Milk Of Magnesia Liq) 30 ml DAILY PRN PO 06/20/17 18:00 (Mag-Al Plus Susp Liq) 30 ml Q6H PRN PO 06/20/17 18:00 (Lactulose Liq) 30 ml Q24H PO 06/20/17 18:00 06/26/17 18:01 06/21/17 17:43 (Theragran M Tab) 1 tab DAILY PO 06/21/17 09:00 06/22/17 08:45 (Vitamin B1) 100 mg DAILY PO 06/21/17 09:00 06/22/17 08:45 (Folate) 1 mg DAILY PO 06/21/17 09:00 06/22/17 08:45 (Protonix) 20 mg DAILY PO 06/21/17 09:00 06/22/17 08:45 (Romazicon Inj) 0.2 mg Q1M PRN IV PUSH 06/21/17 12:00 (Ativan) 1 mg Q4H PRN PO 06/21/17 12:00 06/21/17 17:43 (Ativan Inj) 1 mg Q4H PRN IV PUSH 06/21/17 12:00 (Ativan) 2 mg Q2H PRN PO 06/21/17 12:00 (Ativan Inj) 2 mg Q2H PRN IV PUSH 06/21/17 12:00 (Ativan Inj) 2 mg Q1H PRN IV PUSH 06/21/17 12:00 (Ativan Inj) 2 mg Q15M PRN IV PUSH 06/21/17 12:00 Patient's Strengths (min. 2) In a monitored setting. Verbally fluent. Physical Exam Vital Signs Vital Signs Date Time Temp Pulse Resp B/P (MAP) Pulse Ox O2 Delivery O2 Flow Rate FiO2 06/22/17 05:58 98.3 104 17 153/81 (105) 99 Lab Results Test 06/21/17 17:53 Erythrocyte Sedimentation Rate 1 mm/hr Ammonia 32 MCMOL/L Vitamin B12 Level 489 PG/ML Folate GREATER THAN 20.0 NG/ML Thyroid Stimulating Hormone 3rd Gen 1.850 uIU/ML Rapid Plasma Reagin NON-REACTIVE HIV (1&2) Antibody NEGATIVE Mental Status Examination Appearance: Disheveled Consciousness: Alert Orientation: Person Motor Activity: Normal gait (but walking slow) Speech: Slow Language: Other (limited output) Fund of Knowledge: Inadequate Attention and Concentration: Inadequate Memory: Impaired (difficult to assess, possibly some degree of impairment) Mood: Other (dysphoric) Affect: Flat Thought Process & Associations: Other (concrete) Thought Content: Bizarre thinking Hallucination Type: None Delusion Type: Other (possibly some degree of guardedness) Suicidal Ideation: No Homicidal Ideation: No Insight: Poor Judgment: Poor Assessment & Plan Problem List: (1) Schizophrenia ICD Codes: F20.9 - Schizophrenia, unspecified Assessment & Plan I have seen and examined this patient, reviewed the documentation, discussed personally with Dr. Alcantara, and I agree and concur with his assessment and plan. Consult appreciated. Request HC Surrog/Guard Advoc?: Yes Problem Qualifiers (1) Schizophrenia: Qualified Codes: F20.3 - Undifferentiated schizophrenia Mj Echevarria MD Jun 22, 2017 10:57
--- NOTE | 2017-06-22 11:31 | HHI.PYPN ---
Subjective Chief Complaint: Altered mental status Remarks Patient seen and examined with nurse. Chart reviewed. Request for med list faxed to the [facility] by RN but we have heard nothing in reply. Case discussed with nursing staff. Patient noted by nursing to seem very confused. For example, nurse tells me he was unable to figure out how to close his pants. On my examination today, the patient seems psychomotor slowed and speaks each syllable in a long, drawn-out fashion. He explains "it's like this thing is going over and over and over and over and over." He exhibits some thought blocking and laughs inappropriately at times. He does not verbalize any SI/HI. Remains a little negativistic but less so today. He does allow me to examine him for cog--wheeling. No physical complaints. Review of Systems ROS Limitations: Poor Historian Except as stated in HPI: all other systems reviewed are Neg Mental Status Examination Appearance: Disheveled Consciousness: Alert Orientation: Person, Place ([facility] in [place]), Date/Time (2016) Motor Activity: Other (Mild resting tremor. No cog-wheeling. No hypertonia. Psychomotor slowed. No other motor abnormalities.) Speech: Slow Language: Other (again limited output) Fund of Knowledge: Inadequate Attention and Concentration: Inadequate Memory: Impaired (registration 3/3, recall 0/3 at 3 min.) Mood: Other (mildly dysphoric) Affect: Flat (generally flat, laughs inappropriately at times) Thought Process & Associations: Other (slowed) Thought Content: Bizarre thinking Hallucination Type: None Delusion Type: Other (again possibly some degree of guardedness) Suicidal Ideation: No Homicidal Ideation: No Insight: Poor Judgment: Poor Results Labs Test 06/21/17 17:53 Erythrocyte Sedimentation Rate 1 mm/hr Ammonia 32 MCMOL/L Vitamin B12 Level 489 PG/ML Folate GREATER THAN 20.0 NG/ML Thyroid Stimulating Hormone 3rd Gen 1.850 uIU/ML Rapid Plasma Reagin NON-REACTIVE HIV (1&2) Antibody NEGATIVE Labs reviewed. AMS workup so far unrevealing. Pending labs include thiamine, GEOVANY. EEG read as normal. MRI brain pending. Patient refused EKG. Vitals/IOs Vital Signs Date Time Temp Pulse Resp B/P (MAP) Pulse Ox O2 Delivery O2 Flow Rate FiO2 06/22/17 05:58 98.3 104 17 153/81 105 99 Assessment & Plan Problem List: (1) Schizophrenia ICD Codes: F20.9 - Schizophrenia, unspecified Assessment & Plan Workup for medical causes of patient's mental status so far negative. I will follow up pending labs/studies. Catatonia remains in differential, as does prominent disorganization from psychotic illness. I will order Ativan 2mg IM once for possible catatonia and return to the unit to assess for response. Plan d/w RN. If helpful, will start scheduled IM Ativan. If no or minimal response, will start additional antipsychotic to treat as for disorganization in setting of psychotic illness. Neurology input noted and appreciated. Continue to monitor on the high acuity unit. Continue other medications and care as ordered. Justification for Cont. Inpt. Impairment in reality construction. Impairment in self-care. High risk for decompensation in less restrictive environment. Discharge Planning Pending stabilization. Request HC Surrog/Guard Advoc?: Yes Problem Qualifiers (1) Schizophrenia: Qualified Codes: F20.3 - Undifferentiated schizophrenia Marco Alcantara MD Jun 22, 2017 11:31
--- NOTE | 2017-06-22 13:22 | PD.TTN ---
Patient Problems 1. Discharge planning 2. Medication compliance 3. Knowledge deficit 4. Lack of coping skills Progress Toward Goals Provider Present: Dr. Rama Alcantara Provider Input: Pt medication regiment will be evaluated and any necessary changes will be made. Nurse(s) Present: Jenae Palacios, RN Nurse(s) Input: Pt reported to be aggressive on unit yesterday but has been cooperative and appropriate on unit today. Pt recently appeared catatonic and is being monitored for this. He appears confused and disoriented. Psychiatric Counselors Present: ALEXANDRA Lagunas Psych Therapist Input: Pt appears confused, disoriented, intrusive, guarded and with bizarre behaviors. He approached therapist and displayed poor sense of personal space. Pt struggles to recall what led to admission and provides limited information on his current state. Pt is compliant with medication regiment. Presents with limited insight into condition and need for care. Pt appears to be able to utilize some level of coping and emotional regulation skills as he has had no further outbursts. Group Spec/RT/OT/BRUCE Present: KIANA English Group Spec/RT/OT/BRUCE Input: Pt isolates to his room. He refuses to attend groups. Discharge Plan Other Pt will likely return home and will be linked with outpatient follow up services. Documentation Scribe: ALEXANDRA Lagunas Jonathan LMHC Jun 22, 2017 13:21
--- NOTE | 2017-06-22 14:19 | MG ---
cc: KURT KAY M.D. Lab No: [id number] Date: 06/22/2017 : 1955 Sex: M TECHNIQUE 17-channel EEG. DESCRIPTION The background rhythm reveals a symmetrical alpha rhythm. The frequency is 8-9 Hz. The amplitude is about 20-40 microvolts. During drowsiness there is mild slowing in the theta range. There are no lateralizing features seen and there are no epileptiform discharges present. Photic stimulation results in a normal driving response. INTERPRETATION Normal EEG. MD ELIZABETH Barahona/NYDIA /2:09 PM /2:17 PM
[2017-06-22] MEDS ORDERED: GADODIAMIDE PF 287 MG/ML 5 ML VIAL (for RAD MRI) IV PUSH ONE (14:57)
[2017-06-22] MEDS ORDERED: LORazepam 2 MG/ML VIAL IM ONE (15:15)
--- NOTE | 2017-06-22 15:23 | HHI.PR ---
Subjective Remarks Patient is calm and pleasant today. denies cp/sob. Objective Vitals Vital Signs Date Time Temp Pulse Resp B/P (MAP) Pulse Ox O2 Delivery O2 Flow Rate FiO2 06/22/17 05:58 98.3 104 17 153/81 (105) 99 Imaging Last Impressions Brain MRI 06/22/17 0000 Signed Impressions: Service Date/Time: Thursday, June 22, 2017 14:23 - CONCLUSION: Negative exam. Giovani Mayo MD Objective Remarks AAox2, person and place, nad Clear lungs BL S1S2 RRR, no MRG Abdomen soft, non tender, non distended no edema in lower extremities patient very pleasant, follows commands, some psycomotor retardation is observed Medications and IVs Current Medications Medications (Trade) Dose Ordered Sig/Ricardo Route Start Time Stop Time Status Last Admin (Tylenol) 650 mg Q4H PRN PO 06/20/17 18:00 (Milk Of Magnesia Liq) 30 ml DAILY PRN PO 06/20/17 18:00 (Mag-Al Plus Susp Liq) 30 ml Q6H PRN PO 06/20/17 18:00 (Lactulose Liq) 30 ml Q24H PO 06/20/17 18:00 06/26/17 18:01 06/22/17 18:00 (Theragran M Tab) 1 tab DAILY PO 06/21/17 09:00 06/22/17 08:45 (Vitamin B1) 100 mg DAILY PO 06/21/17 09:00 06/22/17 08:45 (Folate) 1 mg DAILY PO 06/21/17 09:00 06/22/17 08:45 (Protonix) 20 mg DAILY PO 06/21/17 09:00 06/22/17 08:45 (Romazicon Inj) 0.2 mg Q1M PRN IV PUSH 06/21/17 12:00 (Ativan) 1 mg Q4H PRN PO 06/21/17 12:00 06/21/17 17:43 (Ativan Inj) 1 mg Q4H PRN IV PUSH 06/21/17 12:00 (Ativan) 2 mg Q2H PRN PO 06/21/17 12:00 (Ativan Inj) 2 mg Q2H PRN IV PUSH 06/21/17 12:00 (Ativan Inj) 2 mg Q1H PRN IV PUSH 06/21/17 12:00 (Ativan Inj) 2 mg Q15M PRN IV PUSH 06/21/17 12:00 (ZyPREXA ZYDIS ODT) 5 mg HS PO 06/22/17 21:00 06/22/17 20:30 (ZyPREXA INJ) 5 mg HS PRN IM 06/22/17 16:00 (Neurontin) 800 mg BID PO 06/22/17 21:00 06/22/17 20:31 Urinary Catheter: No Vascular Central Line Catheter: No A/P Problem List: (1) Altered mental status ICD Code: R41.82 - Altered mental status, unspecified Status: Acute (2) Schizophrenia ICD Code: F20.9 - Schizophrenia, unspecified Assessment and Plan Follow-up MRI of the brain, EEG, vitamin B12, TSH, vitamin B1, HIV, RPR, sedimentation rate. Continue management of psychiatric symptoms as per psychiatry recommendations. The patient currently on Ativan. Repeat ammonia level within normal range, no electrographic abnormalities, urinalysis obtained on 06/19 negative for infection, chest x-ray negative, head CT negative. Neurology has been consulted as per psychiatry. Follow recommendations. 06/22 MRI negative, EEG negative, ammonia, b12 level, tsh ----> normal. HIV and RPR negative, ESR normal. Problem Qualifiers (1) Schizophrenia: Qualified Codes: F20.3 - Undifferentiated schizophrenia Clint Fernandez MD Jun 22, 2017 15:23
[2017-06-22] MEDS ORDERED: OLANZapine IM 10 MG VIAL IM PRN (16:00)
--- NOTE | 2017-06-22 16:59 | RADRPT ---
EXAM DATE/TIME: 06/22/2017 14:23 [facility] COMPARISON: CT BRAIN W/O CONTRAST, June 19, 2017, 16:08. INDICATIONS : Psychosis. CONTRAST: 15 cc Omniscan (gadodiamide) IV MEDICAL HISTORY : Hypertension. SURGICAL HISTORY : Colon resection. ENCOUNTER: Subsequent ACUITY: 4-6 days PAIN SCORE: 3/10 LOCATION: cranial TECHNIQUE: Multiplanar, multisequence MRI of the brain was performed both prior to and following the administrat ion of paramagnetic contrast. FINDINGS: CEREBRUM: The ventricles are normal for age. No evidence of midline shift, mass lesion, hemorrhage or acute in farction. No extraaxial fluid collections are seen. The pituitary gland and suprasellar cistern are normal in configuration. WHITE MATTER: No significant signal abnormalities are seen in the white matter. POSTERIOR FOSSA: The cerebellum and brainstem are intact. The 4th ventricle is midline. The cerebellopontine angle is unremarkable. The cerebellar tonsils are normal in position. DIFFUSION IMAGING: No focal areas of restricted diffusion are seen. No evidence of acute infarction. EXTRACRANIAL: The visualized portions of the orbits and paranasal sinuses are unremarkable. POST-CONTRAST: No abnormal areas of parenchymal or dural enhancement. No evidence of blood-brain barrier breakdown. CONCLUSION: Negative exam. Giovani Mayo MD on June 22, 2017 at 16:56 Board Certified Radiologist. This report was verified electronically.
[2017-06-22 17:23] VITALS: BP 143/75; PULSE 86; RESP 18; TEMP 98.1; O2SAT 98
[2017-06-22] MEDS: LACTULOSE SYRUP 20 GM/30 ML CUP PO SCH (18:00)
[2017-06-22] MEDS: GABAPENTIN 400 MG CAP PO SCH (20:31)
[2017-06-22] MEDS ORDERED: OLANZapine ODT 5 MG TAB PO SCH (21:00)
[2017-06-23 05:45] VITALS: BP 129/63; PULSE 72; RESP 18; TEMP 98
[2017-06-23] MEDS: FOLIC ACID 1 MG TAB PO SCH (08:29)
[2017-06-23] MEDS: GABAPENTIN 400 MG CAP PO SCH ×2 (08:30→20:14)
[2017-06-23] MEDS: MULTIVITAMINS/MINERALS THERAPEUTIC TAB PO SCH (08:31)
[2017-06-23] MEDS: PANTOPRAZOLE SOD 20 MG DELAYED RELEASE TAB PO SCH (08:31)
[2017-06-23] MEDS: THIAMINE HCL 100 MG TAB PO SCH (08:31)
--- NOTE | 2017-06-23 08:39 | HHI.PYPN ---
Subjective Chief Complaint: Altered mental status Remarks Patient seen and examined. Chart reviewed. Case discussed with nursing staff. On my examination today, the patient remains quite psychomotor slowed, although he is perhaps a little more spontaneous since starting Zyprexa. Mood is "very good," although affect remains quite flat overall. One moment of affective reactivity is when I ask him what his goals are for the hospital stay and he replied "to get out of here" and laughed appropriately. He denies AVH. Denies SI/HI. Sleep fair. Denies side effects from addition of Zyprexa. No physical complaints. Review of Systems ROS Limitations: Poor Historian Except as stated in HPI: all other systems reviewed are Neg Mental Status Examination Appearance: Disheveled Consciousness: Alert Orientation: Person, Place (at least) Motor Activity: Other (psychomotor slowed. No hand tremor, no cogwheeling, no dystonia, no dyskinesia, no other motoric abnormalities noted.) Speech: Slow Language: Other (again limited output) Fund of Knowledge: Inadequate Attention and Concentration: Inadequate Memory: Impaired Mood: Other (mildly dysphoric) Affect: Flat (generally flat, see above) Thought Process & Associations: Other (slowed, concrete) Thought Content: Bizarre thinking Hallucination Type: None Delusion Type: Other (mild guardedness) Suicidal Ideation: No Homicidal Ideation: No Insight: Poor Judgment: Poor Results Labs Labs reviewed. Thiamine and GEOVANY still pending. Last Impressions Brain MRI 06/22/17 0000 Signed Impressions: Service Date/Time: Thursday, June 22, 2017 14:23 - CONCLUSION: Negative exam. Giovani Mayo MD Vitals/IOs Vital Signs Date Time Temp Pulse Resp B/P (MAP) Pulse Ox O2 Delivery O2 Flow Rate FiO2 06/23/17 05:45 98.0 72 18 129/63 (85) 06/22/17 17:23 98 Assessment & Plan Problem List: (1) Schizophrenia ICD Codes: F20.9 - Schizophrenia, unspecified Assessment & Plan Positive if modest early response to addition of Zyprexa. Workup for medical causes of current presentation negative. Ativan trial for catatonia was negative. I suspect the patient is experiencing behavioral disorganization as a consequence of decompensated psychotic illness. He remains at risk for significant morbidity in a less restrictive setting as a consequence of this disorganization and requires ongoing inpatient stabilization. He is tolerating Zyprexa well without side effects. Titrate Zyprexa (regular formulation given the dose) to 7.5mg qHS with IM backup to target psychosis. Hospitalist input noted and appreciated. Continue to monitor on the high acuity unit. Continue other medications and care as ordered. Justification for Cont. Inpt. Impairment in self-care. Medication changes in process. High risk for decompensation in less restrictive environment. Discharge Planning Revised ELOS remains total of 7-9 days for adequate stabilization for safe discharge. Case discussed with counselor. Request HC Surrog/Guard Advoc?: Yes Problem Qualifiers (1) Schizophrenia: Qualified Codes: F20.3 - Undifferentiated schizophrenia Marco Alcantara MD Jun 23, 2017 08:39
--- NOTE | 2017-06-23 16:19 | HHI.PR ---
Subjective Remarks patient is awake and alert, pleasant and cooperative with blunt affect per staff- more spontaneous denies any headache, nausea or vomiting Objective Vitals Vital Signs Date Time Temp Pulse Resp B/P (MAP) Pulse Ox O2 Delivery O2 Flow Rate FiO2 06/23/17 05:45 98.0 72 18 129/63 (85) 06/22/17 17:23 98.1 86 18 143/75 (97) 98 Imaging Last Impressions Brain MRI 06/22/17 0000 Signed Impressions: Service Date/Time: Thursday, June 22, 2017 14:23 - CONCLUSION: Negative exam. Giovani Mayo MD Objective Remarks awake and alert, speech slow anciteric no bruit lungs clear regular rhythm extrmeities no edema moves all extremities spontaenously but slow gait slow but steady A/P Problem List: (1) Altered mental status ICD Code: R41.82 - Altered mental status, unspecified Status: Acute (2) Schizophrenia ICD Code: F20.9 - Schizophrenia, unspecified Assessment and Plan 61 years old male Altered MS-- due to udnerlying pschotic disorder Brain MRI negative, EEG negative, B12, folate normal. HIV negative, ESR normal Continue management of psychiatric symptoms as per psychiatry recommendations. The patient currently on Ativan. Problem Qualifiers (1) Schizophrenia: Qualified Codes: F20.3 - Undifferentiated schizophrenia Brittani Tyler MD Jun 23, 2017 16:19
[2017-06-23] MEDS: LACTULOSE SYRUP 20 GM/30 ML CUP PO SCH (16:54)
[2017-06-23 17:48] VITALS: BP_SYST 120; BP_SYST 141; BP_DIAS 64; BP_DIAS 92; PULSE 85; PULSE 87; RESP 18; TEMP 98.2; O2SAT 96
[2017-06-23] MEDS ORDERED: OLANZapine 2.5 MG TAB PO SCH (21:00)
[2017-06-23] MEDS ORDERED: OLANZapine IM 10 MG VIAL IM PRN (21:00)
[2017-06-24 05:41] VITALS: BP 133/95; PULSE 84; RESP 16; TEMP 98.1
--- NOTE | 2017-06-24 08:30 | HHI.PR ---
Review/Management Daily Summary 06/23 neuro exam shows much more cooperation ambulates reasonably well, slow and no assistive device oriented and asking to go home eeg and mri brain normal will see prn neuro, psych care Subjective Subjective Comments No acute events reported No headache Active Medications Current Medications Medications (Trade) Dose Ordered Sig/Ricardo Route Start Time Stop Time Status Last Admin (Tylenol) 650 mg Q4H PRN PO 06/20/17 18:00 (Milk Of Magnesia Liq) 30 ml DAILY PRN PO 06/20/17 18:00 (Mag-Al Plus Susp Liq) 30 ml Q6H PRN PO 06/20/17 18:00 (Lactulose Liq) 30 ml Q24H PO 06/20/17 18:00 06/26/17 18:01 06/23/17 16:54 (Theragran M Tab) 1 tab DAILY PO 06/21/17 09:00 06/23/17 08:31 (Vitamin B1) 100 mg DAILY PO 06/21/17 09:00 06/23/17 08:31 (Folate) 1 mg DAILY PO 06/21/17 09:00 06/23/17 08:29 (Protonix) 20 mg DAILY PO 06/21/17 09:00 06/23/17 08:31 (Romazicon Inj) 0.2 mg Q1M PRN IV PUSH 06/21/17 12:00 (Ativan) 1 mg Q4H PRN PO 06/21/17 12:00 06/21/17 17:43 (Ativan Inj) 1 mg Q4H PRN IV PUSH 06/21/17 12:00 (Ativan) 2 mg Q2H PRN PO 06/21/17 12:00 (Ativan Inj) 2 mg Q2H PRN IV PUSH 06/21/17 12:00 (Ativan Inj) 2 mg Q1H PRN IV PUSH 06/21/17 12:00 (Ativan Inj) 2 mg Q15M PRN IV PUSH 06/21/17 12:00 (Neurontin) 800 mg BID PO 06/22/17 21:00 06/23/17 20:14 (ZyPREXA INJ) 7.5 mg HS PRN IM 06/23/17 21:00 (ZyPREXA) 7.5 mg HS PO 06/23/17 21:00 06/23/17 20:14 Allergies Allergies Coded Allergies No Known Allergies (Verified Allergy, Unknown, 06/19/17) Exam I&O / VS Vital Signs Date Time Temp Pulse Resp B/P (MAP) Pulse Ox O2 Delivery O2 Flow Rate FiO2 06/24/17 05:41 98.1 84 16 133/95 (108) 06/23/17 17:48 98.2 87 18 141/92 (108) 96 Mary Andrade MD Jun 24, 2017 08:30
[2017-06-24] MEDS: FOLIC ACID 1 MG TAB PO SCH (08:39)
[2017-06-24] MEDS: PANTOPRAZOLE SOD 20 MG DELAYED RELEASE TAB PO SCH (08:40)
[2017-06-24] MEDS: GABAPENTIN 400 MG CAP PO SCH ×2 (08:40→20:56)
[2017-06-24] MEDS: MULTIVITAMINS/MINERALS THERAPEUTIC TAB PO SCH (08:41)
[2017-06-24] MEDS: THIAMINE HCL 100 MG TAB PO SCH (08:48)
--- NOTE | 2017-06-24 09:29 | HHI.PYPN ---
Subjective Chief Complaint: Altered mental status Remarks Patient seen in [facility]. Chart reviewed. Case discussed with nursing staff. For me today, patient remains psychomotor slowed. He is once again more spontaneous in conversation, and even initiates lines of conversation by himself. He has an intense stare still, and his affect remains quite flat. Some ongoing behavioral disorganization: walks into court with his hands in his pants and has to be redirected by the tech regarding proper behavior in this setting. No SI/HI voiced. No reported side effects from medications. No physical complaints. Review of Systems ROS Limitations: Poor Historian Except as stated in HPI: all other systems reviewed are Neg Mental Status Examination Appearance: Disheveled (grooming improving) Consciousness: Alert Orientation: Person, Place Motor Activity: Other (remains psychomotor slowed) Speech: Slow Language: Other (less laconic today) Attention and Concentration: Other (Fair) Mood: Other (remains a little dysphoric) Affect: Flat Thought Process & Associations: Other (less slowed) Thought Content: Appropriate Hallucination Type: None Delusion Type: None Suicidal Ideation: No Homicidal Ideation: No Insight: Poor Judgment: Poor Results Labs Labs reviewed: GEOVANY negative. Thiamine pending. Vitals/IOs Vital Signs Date Time Temp Pulse Resp B/P (MAP) Pulse Ox O2 Delivery O2 Flow Rate FiO2 06/24/17 05:41 98.1 84 16 133/95 (108) 06/23/17 17:48 96 Assessment & Plan Problem List: (1) Schizophrenia ICD Codes: F20.9 - Schizophrenia, unspecified Assessment & Plan Ongoing improvement with Zyprexa, although patient still seems significantly off his reported baseline. I suspect he requires additional inpatient stabilization on his antipsychotic. I will titrate Zyprexa to 10mg qHS PO/IM. Continue to monitor on high acuity unit. Continue other medications and care as ordered. Patient was presented in the [facility] act court him and his case was placed in 1 week continuance. Justification for Cont. Inpt. Medication changes. Risk for decompensation in less restrictive environment. Discharge Planning Anticipate discharge Wednesday or perhaps Wednesday of next week. Case discussed with counselor. Request HC Surrog/Guard Advoc?: Yes Problem Qualifiers (1) Schizophrenia: Qualified Codes: F20.3 - Undifferentiated schizophrenia Marco Alcantara MD Jun 24, 2017 09:29
--- NOTE | 2017-06-24 13:29 | HHI.PR ---
Subjective Remarks awake and alert, ambulating around talking and more spontaneous with response, smiling and more facial expression "hoping to go home" Objective Vitals Vital Signs Date Time Temp Pulse Resp B/P (MAP) Pulse Ox O2 Delivery O2 Flow Rate FiO2 06/24/17 05:41 98.1 84 16 133/95 (108) 06/23/17 17:48 98.2 87 18 141/92 (108) 96 Imaging Last Impressions Brain MRI 06/22/17 0000 Signed Impressions: Service Date/Time: Thursday, June 22, 2017 14:23 - CONCLUSION: Negative exam. Giovani Mayo MD Objective Remarks awake and alert, speech more spontaenous and more interactive anciteric no bruit lungs clear regular rhythm extremeities no edema moves all extremities gait steady A/P Problem List: (1) Altered mental status ICD Code: R41.82 - Altered mental status, unspecified Status: Acute (2) Schizophrenia ICD Code: F20.9 - Schizophrenia, unspecified Assessment and Plan 61 years old male Altered MS-- due to underlying psychotic disorder- behavior and exam improved Brain MRI negative, EEG negative, B12, folate normal. HIV negative, ESR normal Continue management of psychiatric symptoms as per psychiatry recommendations. some elevated BP readings- not known hypertensive anxious here - and wants to go home OP with PCP- states goes [facility]- advise ff up there H signs off. Please call for any questions Problem Qualifiers (1) Schizophrenia: Qualified Codes: F20.3 - Undifferentiated schizophrenia Brittani Tyler MD Jun 24, 2017 13:29
[2017-06-24] MEDS ORDERED: OLANZapine IM 10 MG VIAL IM PRN (17:00)
[2017-06-24] MEDS: LACTULOSE SYRUP 20 GM/30 ML CUP PO SCH (17:51)
[2017-06-24 18:17] VITALS: BP 147/81; PULSE 88; RESP 18; TEMP 98.4; O2SAT 99
[2017-06-24] MEDS: OLANZapine 10 MG TAB PO SCH (20:56)
[2017-06-25 05:48] VITALS: BP 112/68; PULSE 68; RESP 16; TEMP 98.2; O2SAT 99
[2017-06-25] MEDS: FOLIC ACID 1 MG TAB PO SCH (09:00)
[2017-06-25] MEDS: PANTOPRAZOLE SOD 20 MG DELAYED RELEASE TAB PO SCH (09:00)
[2017-06-25] MEDS: THIAMINE HCL 100 MG TAB PO SCH (09:00)
[2017-06-25] MEDS: MULTIVITAMINS/MINERALS THERAPEUTIC TAB PO SCH (09:00)
[2017-06-25] MEDS: GABAPENTIN 400 MG CAP PO SCH ×2 (09:00→20:28)
--- NOTE | 2017-06-25 10:16 | HHI.PYPN ---
Subjective Chief Complaint: Altered mental status Remarks Patient seen and examined with nurse in counselor. Chart reviewed. Case discussed with nurse and in treatment team. On my examination today, the patient is once again more spontaneous. He is initiating more conversation. He denies any SI, HI or AVH. He does complain of some subjective stiffness but otherwise denies side effects from medications. No physical complaints. Review of Systems ROS Limitations: Poor Historian Except as stated in HPI: all other systems reviewed are Neg Mental Status Examination Appearance: Appropriate Consciousness: Alert Orientation: Person, Place Motor Activity: Other (Some slightly increased tone and mild cog-wheeling. No other motoric abnormalities noted.) Speech: Slow (more spontaneous) Language: Adequate Attention and Concentration: Other (Fair) Mood: Appropriate Affect: Blunt (more reactive) Thought Process & Associations: Logical, Linear Thought Content: Appropriate Hallucination Type: None Delusion Type: None Suicidal Ideation: No Homicidal Ideation: No Insight: Poor Judgment: Poor Results Labs Labs reviewed. Vitals/IOs Vital Signs Date Time Temp Pulse Resp B/P (MAP) Pulse Ox O2 Delivery O2 Flow Rate FiO2 06/25/17 05:48 98.2 68 16 112/68 (83) 99 Assessment & Plan Problem List: (1) Schizophrenia ICD Codes: F20.9 - Schizophrenia, unspecified Assessment & Plan Behavioral disorganization and psychomotor slowing continue to improve with addition and titration of Zyprexa. Add Artane 1mg BID for side effect management. Continue Zyprexa as ordered for now, but please consider titrating this agent to 15mg over the weekend if appropriate. Continue to monitor on inpatient unit. Continue other medications and care as ordered. Justification for Cont. Inpt. Med changes. Risk for decompensation in less restrictive environment. Discharge Planning Pending stabilization. Anticipate discharge beginning of next week. Counselor to reach out to patient's to discuss discharge plan. Request HC Surrog/Guard Advoc?: Yes Problem Qualifiers (1) Schizophrenia: Qualified Codes: F20.3 - Undifferentiated schizophrenia Marco Alcantara MD Jun 25, 2017 10:16
[2017-06-25] MEDS: TRIHEXYPHENIDYL HCL 2 MG TAB PO SCH ×2 (10:30→20:30)
--- NOTE | 2017-06-25 10:49 | PD.TTN ---
Patient Problems 1. Discharge planning 2. Medication compliance 3. Knowledge deficit 4. Lack of coping skills Progress Toward Goals Provider Present: Dr. Rama Alcantara Provider Input: Pt medication regiment will be evaluated and any necessary changes will be made. 06/25- Pt medication regiment will be adjusted including titration of his Zyprexa. Pt will be contacted to discuss discharge planning as pt has shown significant improvment. Nurse(s) Present: Jenae Palacios RN Nurse(s) Input: Pt reported to be aggressive on unit yesterday but has been cooperative and appropriate on unit today. Pt recently appeared catatonic and is being monitored for this. He appears confused and disoriented. 06/25- Christel Martinez RN Pt presents with delayed responses, poor sense of personal space and preoccupied but has been no behavioral problem on the unit. Psychiatric Counselors Present: Noble Urbano [facility] Psych Therapist Input: Pt appears confused, disoriented, intrusive, guarded and with bizarre behaviors. He approached therapist and displayed poor sense of personal space. Pt struggles to recall what led to admission and provides limited information on his current state. Pt is compliant with medication regiment. Presents with limited insight into condition and need for care. Pt appears to be able to utilize some level of coping and emotional regulation skills as he has had no further outbursts. 06/25- Pt appears calm, cooperative, appropriate, organized and with improving insight. Pt has shown improvement in ability to communicate though he presents with some ongoing delays. Pt shows ability to verbalize his thoughts and is more interactive in conversation. No noted agitation or aggression. He remains largely withdrawn to self and room. Pt denied any further hallucinations though he does appear somewhat preoccupied. He has been compliant with medication regiment and reports that it is helping him. Pt presents with some level of coping and emotional regulation skills as he has had no outbursts on the unit. Insight appears to be improving with regard to condition and need for care. Group Spec/RT/OT/BRUCE Present: KIANA English, TEO Dave Group Spec/RT/OT/BRUCE Input: Pt isolates to his room. He refuses to attend groups. 06/25- TEO Dave Pt is often confused and does not attend groups. Discharge Plan Other Pt will likely return home and will be linked with outpatient follow up services. Documentation Scribe: ALEXANDRA Lagunas Jonathan LMHC Jun 25, 2017 10:49
[2017-06-25] MEDS: LACTULOSE SYRUP 20 GM/30 ML CUP PO SCH (16:55)
[2017-06-25 18:50] VITALS: BP 145/85; PULSE 77; RESP 18; TEMP 98.4; O2SAT 97
[2017-06-25] MEDS: OLANZapine 10 MG TAB PO SCH (20:28)
[2017-06-26 06:10] VITALS: BP 123/76; PULSE 72; RESP 18; TEMP 97.7; O2SAT 100
[2017-06-26] MEDS: TRIHEXYPHENIDYL HCL 2 MG TAB PO SCH ×2 (08:36→20:43)
[2017-06-26] MEDS: PANTOPRAZOLE SOD 20 MG DELAYED RELEASE TAB PO SCH (08:37)
[2017-06-26] MEDS: FOLIC ACID 1 MG TAB PO SCH (08:37)
[2017-06-26] MEDS: MULTIVITAMINS/MINERALS THERAPEUTIC TAB PO SCH (08:37)
[2017-06-26] MEDS: GABAPENTIN 400 MG CAP PO SCH ×2 (08:37→20:44)
[2017-06-26] MEDS: THIAMINE HCL 100 MG TAB PO SCH (08:37)
--- NOTE | 2017-06-26 14:29 | HHI.PYPN ---
Subjective Chief Complaint: Altered mental status Remarks Patient was seen and case discussed with nursing. Patient is pleasant and cooperative with exam. His behaving well on the unit. Compliant with his medications. Per nursing is been somewhat seclusive. Denies any psychotic symptoms today. Affect remains flat Mental Status Examination Appearance: Appropriate Consciousness: Alert Orientation: Person, Place Motor Activity: Other (Some slightly increased tone and mild cog-wheeling. No other motoric abnormalities noted.) Speech: Slow (more spontaneous) Language: Adequate Attention and Concentration: Other (Fair) Mood: Appropriate Affect: Flat Thought Process & Associations: Logical, Linear Thought Content: Appropriate Hallucination Type: None Delusion Type: None Suicidal Ideation: No Homicidal Ideation: No Insight: Poor Judgment: Poor Results Vitals/IOs Vital Signs Date Time Temp Pulse Resp B/P (MAP) Pulse Ox O2 Delivery O2 Flow Rate FiO2 06/26/17 06:10 97.7 72 18 123/76 (92) 100 Assessment & Plan Problem List: (1) Schizophrenia ICD Codes: F20.9 - Schizophrenia, unspecified Assessment & Plan Continue current treatment Justification for Cont. Inpt. Patient would decompensate in a less restrictive setting Request HC Surrog/Guard Advoc?: Yes Problem Qualifiers (1) Schizophrenia: Qualified Codes: F20.3 - Undifferentiated schizophrenia Aleksandr Pereyra DO Jun 26, 2017 14:29
[2017-06-26] MEDS: LACTULOSE SYRUP 20 GM/30 ML CUP PO SCH (17:20)
[2017-06-26 18:19] VITALS: BP 126/72; PULSE 66; RESP 17; TEMP 98.1; O2SAT 99
[2017-06-26] MEDS: OLANZapine 10 MG TAB PO SCH (20:43)
[2017-06-27 05:50] VITALS: BP 117/67; PULSE 57; RESP 16; TEMP 97.8; O2SAT 100
[2017-06-27] MEDS: GABAPENTIN 400 MG CAP PO SCH ×2 (08:22→20:41)
[2017-06-27] MEDS: TRIHEXYPHENIDYL HCL 2 MG TAB PO SCH ×2 (08:22→20:41)
[2017-06-27] MEDS: MULTIVITAMINS/MINERALS THERAPEUTIC TAB PO SCH (08:22)
[2017-06-27] MEDS: FOLIC ACID 1 MG TAB PO SCH (08:23)
[2017-06-27] MEDS: THIAMINE HCL 100 MG TAB PO SCH (08:23)
[2017-06-27] MEDS: PANTOPRAZOLE SOD 20 MG DELAYED RELEASE TAB PO SCH (08:23)
--- NOTE | 2017-06-27 13:53 | HHI.PYPN ---
Subjective Chief Complaint: Altered mental status Remarks Patient was seen and case discussed with nursing. Patient is pleasant and cooperative with exam. His compliant with his medications. Eating and sleeping well per nursing. Has not had any outbursts. He is somewhat vigilant with a fixed stare Mental Status Examination Appearance: Appropriate Consciousness: Alert Orientation: Person, Place Motor Activity: Other (Some slightly increased tone and mild cog-wheeling. No other motoric abnormalities noted.) Speech: Slow (more spontaneous) Language: Adequate Attention and Concentration: Other (Fair) Mood: Appropriate Affect: Flat Thought Process & Associations: Logical, Linear Thought Content: Other (vigilance) Hallucination Type: None Delusion Type: None Suicidal Ideation: No Homicidal Ideation: No Insight: Poor Judgment: Poor Results Vitals/IOs Vital Signs Date Time Temp Pulse Resp B/P (MAP) Pulse Ox O2 Delivery O2 Flow Rate FiO2 06/27/17 05:50 97.8 57 16 117/67 (84) 100 Assessment & Plan Problem List: (1) Schizophrenia ICD Codes: F20.9 - Schizophrenia, unspecified Assessment & Plan Continue current treatment plan Justification for Cont. Inpt. Patient would decompensate in a less restrictive setting Request HC Surrog/Guard Advoc?: Yes Problem Qualifiers (1) Schizophrenia: Qualified Codes: F20.3 - Undifferentiated schizophrenia Aleksandr Pereyra DO Jun 27, 2017 13:53
[2017-06-27 16:53] VITALS: BP 124/77; PULSE 70; RESP 18; TEMP 97.7; O2SAT 100
[2017-06-27] MEDS: OLANZapine 10 MG TAB PO SCH (20:41)
[2017-06-28 06:13] VITALS: BP 125/75; PULSE 71; RESP 16; TEMP 97.8; O2SAT 100
[2017-06-28] MEDS: TRIHEXYPHENIDYL HCL 2 MG TAB PO SCH (08:08)
[2017-06-28] MEDS: FOLIC ACID 1 MG TAB PO SCH (08:08)
[2017-06-28] MEDS: THIAMINE HCL 100 MG TAB PO SCH (08:08)
[2017-06-28] MEDS: MULTIVITAMINS/MINERALS THERAPEUTIC TAB PO SCH (08:08)
[2017-06-28] MEDS: PANTOPRAZOLE SOD 20 MG DELAYED RELEASE TAB PO SCH (08:08)
[2017-06-28] MEDS: GABAPENTIN 400 MG CAP PO SCH (08:08)
[2017-06-28] MEDS ORDERED: TRIH2 PO (09:41)
[2017-06-28] MEDS ORDERED: OLAN10TA PO (09:41)
--- NOTE | 2017-06-28 09:41 | HHI.DS ---
Psychiatry Discharge Summary Inpatient Psychiatric care?: Yes Advance Directive: No Reason Not Provided: denies the need Mental Health AdvanceDirective: No Health Care Proxy: No Admission Admission Date Jun 20, 2017 at 17:15 Admission Diagnosis: (1) Schizophrenia ICD Code: F20.9 - Schizophrenia, unspecified Brief History Mr. Scherer is a 61 year-old male with a history of schizophrenia and possible comorbid major neurocognitive disorder who presents in transfer from the medical floor under a Pickett act. The patient was admitted initially with altered mental status. He became combative on the medical floor, and psychiatry was consulted. Dr. Echevarria evaluated the patient and suspected some degree of catatonia. He placed the patient under the Pickett Act and the patient was transferred to the inpatient psychiatric unit. Reviewing the electronic medical record, I see no prior psychiatric admissions or consultations within our system. Patient seen and examined with counselor and nurse. On my examination today, the patient presents as somewhat irritable and negativistic. He is neither stuporous nor mute. I do note a resting tremor and possibly some posturing but no stereotypies. He refuses physical exam. He tells me, "my name is Richie Scherer and I'm gonna today." He is unable to explain why he believes this to be the case. He denies SI or HI, although it is unclear whether he is reliable to contract for safety. Affect is flat. He does not describe any AVH. No rob delusional material elicited, although patient does seem a little guarded. He does endorse a history of schizophrenia. Patient is unable to tolerate extended interview and says "leave me alone!" No physical complaints. He is unable to provide any past psychiatric, family, chemical dependency or social history because of uncooperativeness and clinical condition. Obtained further collateral from patient's Bushra over the phone at number listed in EMR. She notes that the patient has a history of schizophrenia diagnosed in 1995 and dementia diagnosed about 5 months ago. He follows at [facility] [place]. He takes several psychotropics including Haldol Dec 100mg IM , which he reported received 1 week ago. He was hospitalized in [place] 2 months ago for symptoms similar to those that led to his presentation here although they were reportedly less severe. He has no history of suicide attempts per . There is no family history of mental illness. He drinks only 2 beers a day per and uses no other substances. He lives with his . notes that prior to a week ago he was "up and coherent and laughing. He is usually easy going." She notes that prior to resumption of benztropine a week ago, which had been stopped secondary to running out of this medication about a month ago, patient "couldn't think straight, he was paranoid and he lost it." There have been no other recent medication changes per , although she does note "I don't think he's taking his medications right." She says that she lays out a pill box for him and that he may have been interchanging the morning and afternoon doses of medications. Tobacco Use In Past 30 Days: 5 or More Cigarettes/Day Alcohol Use: Never Hospital Course Patient was admitted to a locked, inpatient psychiatric unit. A general medical consultation and neurological consultation were obtained. Appropriate precautions were in place throughout patient's hospital stay. Patient was seen and examined on the unit by psychiatry and also visited by counselor. Medical and neurological workup for patient's presenting altered mental status was undertaken without significant abnormalities. Ativan challenge for possible catatonia did not improve patient's condition. Patient did improve significantly with introduction of Zyprexa at bedtime. Patient tolerated this agent and other medications well without significant side effects. There was no evidence of any suicidality or homicidality on the inpatient unit. Patient' s behavior improved with the benefit of psychopharmacologic treatment. Charting indicates that the patient has been sleeping and eating well. On the day of discharge: Patient seen and examined with nurse. Chart reviewed. Case discussed with nursing staff. No behavioral issues overnight. On my examination today, the patient is once again much more spontaneous. He is requesting discharge from the inpatient psychiatric unit today. He denies any suicidal or homicidal ideation, intent or plan on direct questioning and contracts for safety. Mood is stable and I can elicit no depressive or hypomanic/manic symptoms. Affect is much more reactive, and the patient smiles appropriately at intervals. He denies any audiovisual hallucinations, and I can elicit no delusional material. He denies any side effects from medications. No physical complaints. With the patient's permission, I did endeavor to reach out to the patient's on the day of discharge, but she did not hand picker the phone. Weighing the acute, chronic, and protective factors and based on the available evidence, I justice court judge to a reasonable degree of medical certainty that the patient is at low imminent risk of harm to self or others from a mental illness as defined under the Pickett act and his level of function is adequate for outpatient care. Patient does not meet criteria for ongoing involuntary psychiatric hospitalization. He has maximized benefit from this inpatient psychiatric hospital stay. He will be discharged today with psychiatric follow-up as arranged by counselor. Patient is also to follow-up with primary care. I have counseled the patient to return to the psychiatric emergency room for any concerning psychiatric symptoms as part of a general safety plan. Results Blood Pressure 125 / 75 Vital Signs Date Time Temp Pulse Resp B/P (MAP) Pulse Ox O2 Delivery O2 Flow Rate FiO2 06/28/17 06:13 97.8 71 16 125/75 (92) 100 Item Value Date Time Erythrocyte Sedimentation Rate 1 mm/hr 06/21/17 1753 Ammonia 32 MCMOL/L 06/21/17 1753 Thiamine Level 151 nmol/L 06/21/17 1753 Vitamin B12 Level 489 PG/ML 06/21/17 1753 Folate GREATER THAN 20.0 NG/ML H 06/21/17 1753 Thyroid Stimulating Hormone 3rd Gen 1.850 uIU/ML 06/21/17 1753 Anti-Nuclear Antibody Screen NEG 06/21/17 1753 Rapid Plasma Reagin NON-REACTIVE 06/21/17 1753 HIV (1&2) Antibody NEGATIVE 06/21/17 1753 Summary of Procedures EEG was read as normal. Imaging Last Impressions Brain MRI 06/22/17 0000 Signed Impressions: Service Date/Time: Thursday, June 22, 2017 14:23 - CONCLUSION: Negative exam. Giovani Mayo MD Pending results at discharge: No Medications # of Antipsychotic meds at D/C: 2 Appropriate >1 Antipsych meds?: 4 Approp Antipsych med options 1 - Minimum of three failed multiple trials of monotherapy. 2 - Documented plan to taper to monotherapy due to previous use of multiple meds OR cross-taper in progress at D/C. 3 - Documentation of augmentation of Clozapine. 4 - Justification other than those listed in allowable values 1-3, document here : Required multiple antipsychotics for stabilization Discharge Discharge Date: Jun 28, 2017 Discharge Diagnosis: (1) Schizophrenia Diagnosis: Principal (stabilized) ICD Code: F20.9 - Schizophrenia, unspecified Pt Condition on Discharge: Stable Discharge Disposition: Discharge Home Discharge Instructions Diet Instructions: Heart Healthy Diet Activities you can perform: Weight Bearing as Geo Scheduled Appointment: as per counselor's notes New Medications: Olanzapine (Olanzapine) 10 Mg Tab 10 MG PO HS for Mental Health for 15 Days, TAB 1 Refill Trihexyphenidyl (Trihexyphenidyl) 2 Mg Tab 1 MG PO Q12HR for Side effect management for 15 Days, TAB 1 Refill Continued Medications: Folic Acid (Folic Acid) 0.4 Mg Tab 1 MG PO DAILY for Nutritional Supplement, TAB 0 Refills Gabapentin (Gabapentin) 800 Mg Tab 800 MG PO HS, #90 TAB 0 Refills Haloperidol Decanoate Inj (Haloperidol Decanoate Inj) 100 Mg/Ml Inj 100 MG IM Q21D for Schizophrenia, #1 VIAL 0 Refills Lactulose Liq (Lactulose Liq) 10 Gm/15 Ml Soln 30 ML PO DAILY for Elevated Ammonia for 7 Days, #210 ML 0 Refills Multiple Vitamins W/ Minerals (Thera M Plus) 1 Tab 1 TAB PO DAILY for Nutritional Supplement, #30 TAB Omeprazole (Omeprazole) 20 Mg Tab 20 MG PO DAILY, #30 TAB 0 Refills Sildenafil (Viagra) 25 Mg Tab 25 MG PO DAILY PRN for ERECTILE DYSFUNCTION, TAB 0 Refills Thiamine HCl (Gnp Vitamin B-1) 100 Mg Tab 100 MG PO DAILY for Nutritional Supplement, #30 TAB Discontinued Medications: Benztropine (Benztropine) 0.5 Mg Tab 2 MG PO QID, #60 TAB 0 Refills Donepezil (Donepezil) 10 Mg Tab 10 MG PO HS for Dementia, #30 TAB 0 Refills Haloperidol (Haloperidol) 10 Mg Tab 10 MG PO DAILY, TAB 0 Refills Lorazepam (Lorazepam) 2 Mg Tab 2 MG PO Q8H PRN for ANXIETY, TAB 0 Refills Lorazepam Inj (Ativan Inj) 2 Mg/Ml Inj 1 MG IV PUSH Q4H PRN for CIWA 8 - 10, #10 INJECTION Lorazepam Inj (Ativan Inj) 2 Mg/Ml Inj 2 MG IV PUSH Q2H PRN for CIWA 11-14, #10 INJECTION Lorazepam Inj (Ativan Inj) 2 Mg/Ml Inj 2 MG IV PUSH Q1H PRN for CIWA 15-20, #10 INJECTION Lorazepam Inj (Ativan Inj) 2 Mg/Ml Inj 2 MG IV PUSH Q15M PRN for CIWA > 20, #10 INJECTION Lorazepam (Ativan) 1 Mg Tab 1 MG PO Q4H PRN for CIWA 8 - 10, #10 TAB Lorazepam (Ativan) 2 Mg Tab 2 MG PO Q2H PRN for CIWA 11-14, #10 TAB Trazodone (Trazodone) 100 Mg Tablet 100 MG PO HS for Control Depression, #30 TAB 0 Refills Discharge Time <= 30 minutes Mental Status Examination Appearance: Appropriate Consciousness: Alert Orientation: Person, Place, Date/Time (approximate) Motor Activity: Other (no hand tremor, no dystonia, no dyskinesia noted. No other motor abnormalities noted. No ongoing psychomotor slowing.) Speech: Unremarkable Language: Adequate Fund of Knowledge: Adequate Attention and Concentration: Adequate Memory: Unremarkable (grossly intact on clinical exam) Mood: Appropriate Affect: Other (much more full and reactive versus admission) Thought Process & Associations: Logical, Goal directed, Linear Thought Content: Appropriate Hallucination Type: None Delusion Type: None Suicidal Ideation: No Suicidal Plan: No Suicidal Intention: No Homicidal Ideation: No Homicidal Plan: No Homicidal Intention: No Insight: Fair Judgment: Adequate (fair) Discharge/Advance Care Plan Health Problems: (1) Schizophrenia Goals to promote your health * To prevent worsening of your condition and complications * To maintain your health at the optimal level Directions to meet your goals Take your medications as prescribed Follow your dietary instruction Follow activity as directed Keep your appointments as scheduled Take your immunizations and boosters as scheduled If your symptoms worsen call your PCP, if no PCP go to Urgent Care Center or Emergency Room For 24/7 questions related to your inpatient stay or results of tests pending at discharge, please contact Dr. Marco Alcantara at Smoking is Dangerous to Your Health. Avoid second hand smoking Problem Qualifiers (1) Schizophrenia: Qualified Codes: F20.3 - Undifferentiated schizophrenia Marco Alcantara MD Jun 28, 2017 09:41
== END 2017-06-28 12:30 | disposition home or self-care (01) | DRG 885 ==
LOC: H4EA 17:15 → H270 19:15
PROVIDERS: ADMIT Psychiatry & Neurology Psychiatry; ATTEND Psychiatry & Neurology Psychiatry
DX: F20.9 Schizophrenia, unspecified (principal); E72.20 Disorder of urea cycle metabolism, unspecified; R03.0 Elevated blood-pressure reading, without diagnosis of hypertension
CPT/HCPCS: 70553; 82140; 82607; 82746; 84425; 84443; 85652; 86038; 86592; 86703; 95819; A9579; J2060